=== PATIENT | female | born 1990 | race Caucasian/White ===

== ENCOUNTER 2018-05-13 20:20 | Emergency (ER) | payer OTHER ==
[~2018-05-13] VITALS: Ht 165.1 cm; Wt 68.0 kg
--- NOTE | 2018-05-13 20:33 | ED General ---
General Stated Complaint: MIGRAINE History of Present Illness Date Seen by Provider: May 13, 2018 Time Seen by Provider: 21:00 Initial Comments Patient is a 28-year-old female who has a prior history of migraine headaches. She reports to the emergency department today complaining of exact symptoms that are similar to her normal headache process. This particular headache has occurred over the last 3 days and she has been unable to get rid of it. She was evaluated in an urgent care yesterday and given Toradol and Reglan and she states this medication did not help. At baseline, she uses Imitrex for headaches but her insurance only pays for 9 Imitrex per month so this is all she can obtain. Patient is also followed at [facility] where she receives Botox injections. She reports that her neurologist has canceled all the rest of her headache medications as there was some concern for rebound headaches. Tonight, no focal neuro complaints. No fever. No neck pain or neck stiffness. No rashes. No nausea or vomiting. She does have mild photophobia. Pain is described to be bitemporal and dull and achy. Classic for her symptoms, according to the patient. Allergies and Home Medications Allergies Coded Allergies: No Known Drug Allergies (Unverified , 05/13/18) Home Medications Sumatriptan Succinate 100 Mg Tablet, 100 MG PO UD PRN for MIGRAINE Prescribed by: ALYX BAUGH on 05/13/18 6647 Patient Home Medication List Home Medication List Reviewed: Yes Review of Systems Review of Systems Constitutional: no symptoms reported EENTM: see HPI, ear discharge, hearing loss, ear pain, eye pain, tearing, vision loss, dental problems, hoarseness, mouth pain, epistaxis, nose congestion , nose pain, throat pain, throat swelling, other; No no symptoms reported, No blurred vision, No double vision, No mouth swelling Respiratory: no symptoms reported Cardiovascular: no symptoms reported Genitourinary: no symptoms reported Musculoskeletal: no symptoms reported Skin: no symptoms reported Psychiatric/Neurological: Headache Hematologic/Lymphatic: No Symptoms Reported Immunological/Allergic: no symptoms reported Physical Exam Vital Signs Vital Signs - First Documented 05/13/18 20:56 Temp 98.2 Pulse 88 Resp 14 B/P (MAP) 125/77 (93) Pulse Ox 97 O2 Delivery Room Air Capillary Refill : Height, Weight, BMI Height: '" Weight: lbs. oz. kg; BMI Method: General Appearance: No Apparent Distress, WD/WN HEENT: PERRL/EOMI Neck: Full Range of Motion Respiratory: Lungs Clear Cardiovascular: Regular Rate, Rhythm Extremity: Normal Capillary Refill, Normal Inspection Neurologic/Psychiatric: Alert, Oriented x3, No Motor/Sensory Deficits, Normal Mood/Affect Skin: Normal Color, Warm/Dry Lymphatic: No Adenopathy Progress/Results/Core Measures Suspected Sepsis SIRS Temperature: Pulse: Respiratory Rate: Blood Pressure / Mean: Results/Orders My Orders Orders - ALYX BAUGH DO Ns Iv 1000 Ml (Sodium Chloride 0.9%) (05/13/18 21:00) Diphenhydramine Injection (Benadryl Inje (05/13/18 21:00) Prochlorperazine Injection (Compazine In (05/13/18 21:00) Ketorolac Injection (Toradol Injection) (05/13/18 21:00) Medications Given in ED Current Medications Medications Dose Ordered Sig/Daksha Route Start Time Stop Time Status Last Admin Dose Admin Diphenhydramine HCl 25 mg ONCE ONCE IVP 05/13/18 21:00 05/13/18 21:01 DC 05/13/18 21:30 25 MG Ketorolac Tromethamine 30 mg ONCE ONCE IVP 05/13/18 21:00 05/13/18 21:01 DC 05/13/18 21:29 30 MG Prochlorperazine Edisylate 10 mg ONCE ONCE IV 05/13/18 21:00 05/13/18 21:01 DC 05/13/18 21:29 10 MG Vital Signs/I&O 05/13/18 05/13/18 20:56 21:29 Temp 98.2 98.2 Pulse 88 Resp 14 B/P (MAP) 125/77 (93) Pulse Ox 97 O2 Delivery Room Air Capillary Refill : Critical Care Note Critical Care Total Time (minutes) Patient is seen and examined on arrival to her room. She has no focal neurologic complaints or deficits on physical exam. Her headache is exactly typical for her normal migraine symptoms. In the ER, she is ordered to have IV fluids, Toradol, Compazine, and Benadryl. Will reassess after these medications. 22:00: Patient is currently feeling much improved after the medications. She is requesting discharge home. Patient is provided a prescription for Imitrex. She is advised she can purchase these even without her insurance company being involved. I checked the quesada of these medications for the patient and they should be about $15 at [facility]. She is accompanied by a friend this evening was driving her home. She is advised to keep all follow-up appointments with her primary physicians and neurologists. Return to the emergency department as needed. Departure Impression Primary Impression: Headache Disposition: HOME, SELF-CARE Condition: Improved Departure-Patient Inst. Patient Instructions: Migraine Headache (DC) Scripts Sumatriptan Succinate (Imitrex) 100 Mg Tablet 100 MG PO UD PRN for MIGRAINE for 15 Days, #9 TAB 1 Refill Prov: ALYX BAUGH DO 05/13/18 Work/School Note: Family Work Note Patient Received Medical Care In the Emergency Department On: May 13, 2018 Patient Will Be Able to Return to Work/School On: May 13, 2018 Patient Restrictions: No work on 05/14/2018 ALYX BAUGH DO May 13, 2018 20:33
[2018-05-13] MEDS ORDERED: CYCLOBENZAPRINE 10 MG TABLET (20:54)
[2018-05-13] MEDS ORDERED: SUMATRIPTAN 100 MG (20:54)
[2018-05-13] MEDS ORDERED: ESCITALOPRAM 20 MG (20:54)
[2018-05-13] MEDS ORDERED: ESTARYLLA (20:54)
[2018-05-13] MEDS ORDERED: IBUPROFEN 800 MG (20:54)
[2018-05-13] MEDS ORDERED: BUPROPION 75 MG (20:54)
[2018-05-13] MEDS ORDERED: CLONAZEPAM 1MG TABLETS (20:54)
[2018-05-13] MEDS ORDERED: TOPIRAMATE 25 MG TABLET (20:54)
[2018-05-13] MEDS ORDERED: NS IV 1000 ML 1,000 ML IV SCH (21:00)
[2018-05-13] MEDS ORDERED: diphenhydrAMINE 50 MG/ML INJ (BENADRYL) IVP ONE (21:00)
[2018-05-13] MEDS ORDERED: KETOROLAC 30 MG/ML VIAL IVP ONE (21:00)
[2018-05-13] MEDS ORDERED: PROCHLORPERAZINE 10 MG/2ML INJ (COMPAZINE) IV ONE (21:00)
[2018-05-13] MEDS ORDERED: TRAM-42 PO (21:40)
[2018-05-13] MEDS ORDERED: SUMA100T2 PO (21:42)
[2018-05-13 22:07] VITALS: BP 119/75
--- OUTSIDE RECORDS SUMMARY | 2018-05-14 14:03 | XMS REPORT | Continuity of Care Document ---
Author Author [facility] Address Unknown Phone Unavailable Allergies There is no data. Medications There is no data. Problems Date Dx Coded Attending Type Code Diagnosis Diagnosed By 09/04/2013 IDALIA MORGAN DO V70.5 EXAM - PRE-EMPLOYMENT Procedures Code [place] [address] TB TEST INTRADERMAL 09/04/2013 Results There is no data. Encounters ACCT No. Visit Date/Time Discharge Status Pt. Type Provider Facility Loc./Unit Complaint [id number] 09/04/2013 14:43:00 09/04/2013 23:59:59 [place] [id number] 05/12/2018 11:30:00 [facility]
== END 2018-05-13 22:07 | disposition home or self-care (01) ==
LOC: ER FS 20:33
DX: R51 Headache (principal); Z86.69 Personal history of other diseases of the nervous system and sense organs
CPT/HCPCS: 99283

== ENCOUNTER → 2018-12-11 | Outpatient (CLI) | payer BC ==
[~2018-12-11] MED LIST: BUPROPION 75 MG; CLONAZEPAM 1MG TABLETS; CYCLOBENZAPRINE 10 MG TABLET; ESCITALOPRAM 20 MG; ESTARYLLA; IBUPROFEN 800 MG; SUMA100T2 PO; SUMATRIPTAN 100 MG; TOPIRAMATE 25 MG TABLET; TRAM-42 PO
--- NOTE | 2018-12-11 17:51 | Diagnostic Imaging Report ---
PROCEDURE: MR imaging cervical spine without contrast. TECHNIQUE: Multiplanar, multisequence MR imaging of the cervical spine was performed without contrast. INDICATION: Chronic neck pain and migraines. Bilateral shoulder pain. COMPARISON: None. FINDINGS: Normal alignment. Vertebral body heights preserved. Normal bone marrow signal. The intervertebral discs are well-preserved. No spinal canal or neural foraminal narrowing. No abnormal signal in the cervical spinal cord. The visualized paravertebral soft tissues are unremarkable. IMPRESSION: Normal MRI of the cervical spine. No neural impingement. No acute osseous or ligamentous findings. No abnormal signal in the cervical spinal cord. Dictated by: Dictated on workstation # [id number]
== END ==
LOC: RAD 16:52
PROVIDERS: ATTEND Internal Medicine
DX: G89.29 Other chronic pain (principal); M54.2 Cervicalgia; M25.511 Pain in right shoulder; M25.512 Pain in left shoulder; G43.709 Chronic migraine without aura, not intractable, without status migrainosus
CPT/HCPCS: 72141

== ENCOUNTER 2019-09-07 08:44 | Emergency (ER) | payer OTHER, MEDICAID ==
[~2019-09-07] VITALS: Ht 165.1 cm; Wt 80.0 kg
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
--- OUTSIDE RECORDS SUMMARY | 2019-09-07 08:57 | XMS REPORT | Continuity of Care Document ---
Author Organization Unknown Address Unknown Phone Unavailable Allergies Active Description Code Type Severity Reaction Onset Reported/Identified Relationship to Patient Clinical Status Yes No Known Drug Allergies [id number] Drug Allergy Unknown N/A 05/13/2018 Medications There is no data. Problems Date Dx Coded Attending Type Code Diagnosis Diagnosed By 09/04/2013 IDALIA MORGAN DO V70.5 EXAM - PRE-EMPLOYMENT 05/13/2018 ALYX BAUGH DO Ot G43.909 MIGRAINE, UNSP, NOT INTRACTABLE, WITHOUT 05/13/2018 ALYX BAUGH DO Ot R51 HEADACHE 05/13/2018 ALYX BAUGH DO Ot Z86.69 PERSONAL HISTORY OF DIS OF THE NERVOUS S 05/15/2018 ALYX BAUGH DO Ot G43.909 MIGRAINE, UNSP, NOT INTRACTABLE, WITHOUT 05/15/2018 ALYX BAUGH DO Ot R51 HEADACHE 05/15/2018 ALYX BAUGH DO Ot Z86.69 PERSONAL HISTORY OF DIS OF THE NERVOUS S 12/13/2018 PUCKETTRodrigo ESQUEDA DESTEFANIA Y Ot G43.7 09 CHRONIC MIGRAINE W/O AURA, NOT INTRACTAB 12/13/2018 ITALO ESQUEDA DESTEFANIA Y Ot G89.2 9 OTHER CHRONIC PAIN 12/13/2018 PUCKETTANNABELLE Wallace MD Y Ot M25.5 11 PAIN IN RIGHT SHOULDER 12/13/2018 ITALO ESQUEDA DEETRA Y Ot M25.5 12 PAIN IN LEFT SHOULDER 12/13/2018 PUCKETTANNABELLE Wallace MD Y Ot M54.2 CERVICALGIA 01/03/2019 PUCKETTANNABELLE Wallace MD Y Ot G43.7 09 CHRONIC MIGRAINE W/O AURA, NOT INTRACTAB 01/03/2019 ITALO ESQUEDA DEETRA Y Ot G89.2 9 OTHER CHRONIC PAIN 01/03/2019 PUCKETTANNABELLE Wallace MD Y Ot M25.5 11 PAIN IN RIGHT SHOULDER 01/03/2019 ANNABELLE PUCKETT MD Y Ot M25.5 12 PAIN IN LEFT SHOULDER 01/03/2019 ANNABELLE PUCKETT MD Y Ot M54.2 CERVICALGIA Procedures Code Description [place] [address] TB T EST INTRADERMAL 09/04/2013 Results There is no data. Encounters ACCT No. Visit Date/Time Discharge Status Pt. Type Provider Facility Loc./Unit Complaint [id number] 08/30/2019 13:30:00 08/30/2019 23:59:5 9 CLS Outpatient [facility] [id number] 12/11/2018 16:52:00 23:59:59 CLS Outpatient ANNABELLE PUCKETT MD Y [facility] RAD CHRONIC MIGRAINE,NECK P AIN [id number] 09/01/2018 15:30:00 23:59:59 CLS Preadmit ANNABELLE PUCKETT MD Y [facility] RAD NECK PAIN [id number] 05/13/2018 20:33:00 22:07:00 DIS Emergency ALYX BAUGH DO [facility] ER FS MIGRAINE [id number] 09/04/2013 14:43:00 09/04/2013 23:59: 59 CLS Outpatient IDALIA MORGAN DO
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
[2019-09-07 09:36] VITALS: BP 107/88
== END 2019-09-07 09:36 | disposition home or self-care (01) ==
LOC: EDUNIT# 08:44 → ER FS 08:45
DX: S16.1XXA Strain of muscle, fascia and tendon at neck level, initial encounter (principal); S50.812A Abrasion of left forearm, initial encounter; G43.909 Migraine, unspecified, not intractable, without status migrainosus; V49.40XA Driver injured in collision with unspecified motor vehicles in traffic accident, initial encounter
CPT/HCPCS: 72125

== ENCOUNTER 2021-04-06 22:23 | Emergency (ER) | payer MEDICAID, OTHER ==
[~2021-04-06] VITALS: Ht 165 cm; Wt 81.7 kg
--- OUTSIDE RECORDS SUMMARY | 2021-04-06 22:28 | XMS REPORT | Encounter Summary ---
Author Author [facility] Organization [facility] Address Unknown Phone Unavailable Care Team Providers Care Tsa Screener Name Role Phone Rashaun Valdez MD PCP Reason for Visit * Reason Comments Suicidal physicians have been adjust ing her medications; reports suicidal thoughts x couple of weeks * Auth/Cert Diagnoses / Procedures Referred By Contact Referred To Conta ct Specialty Diagnoses Suicidal ideation Referral ID Status Reason Start Date Expiration Visits Vi sits Date Requested Authorized [id number] 1 1 Encounter Details Care Team Description Date Type Department Dangers, David Alexander MD [address] [facility] [place] [address] Selena Muniz, DO [address] [place] [address] Sandhya Joseph, DO [address] [facility] [address] [place] [address] 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 02/12/2021 [facility]: - Encounter Carroll Stevenson 02/17/[address] [place] [address] Social History Date Tobacco Use Types Packs/Day Years Used Never Smoker Smokeless Tobacco: Never Used Comments Alcohol Use Standard Drinks/Week Not Currently 0 (1 standard drink = 0.6 o z pure alcohol) Sex Assigned at Date Recorded Female 03/10/2020 4:08 PM MANAGER SHELL Date Recorded COVID-19 Exposure Response 02/12/2021 9:52 PM MANAGER SHELL In the last month, have you been in contact with No / Unsure someone who was confirmed or suspected to have Coronavirus / COVID-19? documented as of this encounter Last Filed Vital Signs Reading Time Taken Comments Vital Sign 109/76 02/17/2021 11:00 AM MANAGER SHELL Blood Pressure 90 02/17/2021 11:00 AM MANAGER SHELL Pulse 36.6 C (97.8 F) 02/17/2021 11:00 AM MANAGER SHELL Temperature - - Respiratory Rate 98% 02/17/2021 11:00 AM MANAGER SHELL Oxygen Saturation - - Inhaled Oxygen Concentration 81.8 kg (180 lb 6.4 oz) 02/13/2021 2:23 AM MANAGER SHELL Weight 162.6 cm (5' 4") 02/13/2021 2:23 AM MANAGER SHELL Height 30.97 02/13/2021 2:23 AM MANAGER SHELL Body Mass Index documented in this encounter Functional Status Date of Assessment Functional Status Response 02/13/2021 Does the patient have a hearing impairment: No documented as of this encounter Discharge Summaries * Selena Muniz, DO - 02/16/2021 9:31 AM MANAGER SHELL Discharge Summary Name: Selena Mortensen Date Of : 1990 Age: 30 years Admit date: 02/12/2021 Discharge date: 02/17/2021 Discharge Attending: Dr. Selena Muniz Discharge Summary Completed By: Ryne Keane MD Service: [facility] Adult [facility] 1 Reason for hospitalization: Suicidal ideation [R45.851] Primary Discharge Diagnosis: Depressive disorder due to another medical condition with depressive features Hospital Diagnoses: Hospital Problems Active Problems * (Principal) Depressive disorder due to another medical condition with depressive features Borderline personality disorder Generalized anxiety disorder Significant Past Medical History Anxiety Depression Headache Impingement syndrome of shoulder Kidney stone Migraines Neck pain Allergies Patient has no known allergies. Brief Hospital Course The patient was admitted and treated for suicidal ideation, worsening in the con text of chronic migraines and interpersonal stressors with work. During her admi ssion, she was continued on Wellbutrin 450 mg qday per patient request, and rest arted on Lamotrigine 25 mg qhs with plans to uptitrate to 200 mg qday on an outp atient basis. She was also placed on an AWAS protocol with gabapentin taper due to her chronic use of clonopin. She was encouraged to discontinue her clonopin a s chronic benzodiazepine use can lead to dangerous withdrawals. Her Sumatriptan was restarted PRN for migraines, as there is no known interaction between sumatr iptan and wellbutrin that could cause serotonin syndrome and patient did not hav e objective fevers during her admission. She was provided with Hydroxyzine 25 mg 30 tablets on discharge, as needed for anxiety. During this admission, the patient had no behavioral disturbances and participat ed fully in treatment. Collateral information was gathered as needed for treatme nt. Medications were adjusted and the patient tolerated the below regimen well. Throughout this admission, the patient participated in group therapy sessions an d expressed significant improvement from admission. The patient reported distres s over getting a new job but throughout the admission discussed these stressors and felt more prepared to cope with these upon discharge. The day of discharge, the patient reported that her mood was improved, and displ ayed a forward thinking thought process with plans go home, be around her friend Nick and her daughter Dedra, and find a new job . At discharge, the patient denied SI/HI/AVH. Mental Status Exam at Discharge Mental Status Exam General/Constitutional: appears stated age, dressed in hospital attire and fair grooming Eye Contact: good Behavior: calm, cooperative and appropriate for conversation Attention: appropriate for conversation Speech: RRR, normal volume, normal tone and good articulation Mood: "okay" Affect: bright,full range; mood congruent Thought process:linear and goal directed Thought content: denies Suicidal Ideation, Homicidal Ideation. No evidence of de lusions Perception: denies Auditory Visual Hallucinations Associations: Intact Insight: good Orientation: AAOx3 (name/year/location) Recent and remote memory: grossly intact Attention span and concentration: appropriate for conversation Cognition: average Language: faroese, fluent Fund of knowledge and vocabulary: average Physical Exam: Neuro: No tics, tremors, akathisia noted.- Musculoskeletal: Moves all four extremities spontaneously Gait: normal, no ataxia Items Needing Follow Up Pending items or areas that need to be addressed at follow up: Follow up with in ternal medicine regarding subjective fevers. Pending Labs and Follow Up Radiology Pending labs and/or radiology review at this time of discharge are listed below: if this area is blank, there are no items for review. Medications Is the patient being discharged on two or more antipsychotic medications? No Metabolic Monitoring: Body mass index is 30.97 kg/m. Wt Readings from Last 3 Encounters: 02/13/21 81.8 kg (180 lb 6.4 oz) 02/11/21 83.7 kg (184 lb 8 oz) 11/19/20 84.4 kg (186 lb) BP Readings from Last 3 Encounters: 02/16/21 111/71 02/11/21 128/82 11/19/20 124/82 No results found for: CHOL, TRIG, HDL, LDL, VLDL, NONHDLCHOL, CHOLHDLC No results found for: HGBA1C Patient instructions/medications: Medication List START taking these medications hydrOXYzine HCL 25 mg tablet; Commonly known as: ATARAX; Dose: 25 mg; Take one tablet by mouth every 6 hours as needed. Indications: anxious; For: anxious; Quantity: 30 tablet; Refills: 0 lamoTRIgine 25 mg tablet; Commonly known as: LaMICtal; Dose: 25 mg; Take one tablet by mouth at bedtime daily.; Quantity: 30 tablet; Refills: 0 CONTINUE taking these medications eszopiclone 3 mg tablet; Commonly known as: LUNESTA; Dose: 3 mg; Refills: 0 ibuprofen 800 mg tablet; Commonly known as: MOTRIN; Dose: 800 mg; Refills: 0 MELATONIN PO; Refills: 0 norgestimate-ethinyl estradiol 0.25 mg-35 mcg tablet; Commonly known as: ORTHO-CYCLEN (28); Dose: 1 tablet; Refills: 0 ondansetron 4 mg rapid dissolve tablet; Commonly known as: ZOFRAN ODT; PLACE ONE (1) TABLET ON TONGUE AND ALLOW TO DISSOLVE EVERY 8 HOURS NEEDED FOR NAUSEA OR VOMITING; Quantity: 15 tablet; Refills: 0 UBRELVY 100 mg tablet; Generic drug: ubrogepant; Dose: 100 mg; Take one tablet by mouth daily as needed. May repeat once after 2 hours based on response. Indications: a migraine headache; For: a migraine headache; Quantity: 10 tablet; Refills: 3 * WELLBUTRIN XL 300 mg tablet; Generic drug: buPROPion XL; Dose: 300 mg; Refills: 0 * buPROPion XL 150 mg tablet; Commonly known as: WELLBUTRIN XL; Dose: 150 mg; Refills: 0 * This list has 2 medication(s) that are the same as other medications prescribed for you. Read the directions carefully, and ask your doctor or other care provider to review them with you. STOP taking these medications clonazePAM 1 mg tablet; Commonly known as: KlonoPIN Return Appointments and Scheduled Appointments Scheduled appointments: May 06, 2021 2:30 PM (Arrive by 2:15 PM) Procedure with Torito Owens MD Neurology: [facility] (Neurology) [address] [facility] [address] Sep 08, 2021 3:00 PM (Arrive by 2:45 PM) Office visit with Torito Owens MD Neurology: [facility] (Neurology) [address] [facility] [address] Consults, Procedures, Diagnostics, Micro, Pathology Consults: None Surgical Procedures & Dates: None Significant Diagnostic Studies, Micro and Procedures: none Significant Pathology: none Nutrition: No Dietitian Consult Discharge Disposition, Condition Patient Disposition: Home Condition at Discharge: Stable Code Status Code Status History This patient has a current code status but no historical code status. Patient Instructions Regular Diet You have no dietary restriction. Please continue with a healthy balanced diet. Report These Signs and Symptoms Please contact your doctor if you have any of the following symptoms: suicidal thoughts, auditory or visual hallucinations, desire to harm self or others Questions About Your Stay For questions or concerns regarding your hospital stay, call [phone]. Discharging attending physician: SELENA MUNIZ [[id number]] Activity as Tolerated It is important to keep increasing your activity level after you leave the hosp ital. Moving around can help prevent blood clots, lung infection (pneumonia) an d other problems. Gradually increasing the number of times you are up moving ar ound will help you return to your normal activity level more quickly. Continue to increase the number of times you are up to the chair and walking daily to ret urn to your normal activity level. Begin to work toward your normal activity lev el at discharge Additional Orders: Case Management, Supplies, Home Health Home Health/DME None Signed: Ryne Keane MD 02/16/2021 cc: Primary Care Physician: Rashaun Valdez Verified Referring physicians: Self, Referral Additional provider(s): Did we miss something? If additional records are needed, please fax a request on office letterhead to [phone]. Please include the patient's name, date of b irth, fax number and type of information needed. Additional request can be made by email at [email or web address]. For general questions of information about electronic records sharing, call [phone]. GER SHELL documented in this encounter Discharge Instructions * Discharge Instructions* Destini Dotson - 02/16/2021 9:46 AM MANAGER SHELL Case Management Discharge Instructions: Selena, We recommend that you continue to follow up with outpatient mental health ser vices, including individual therapy and medication management/psychiatry Continue to take your medication as prescribed, and report any negative side effects to your doctor In case of emergency or crisis, IMMEDIATELY call 911 or go to your nearest em ergency room Appointment Information: [facility] [address] [place] [address] [phone] We encourage you to follow up with Dr. Nice within 30 days to [place] [address] [phone] Other Follow Up Information: National Suicide Prevention Lifeline: DIRECT LINE: 138 We can all help prevent suicide. The Lifeline provides 24/7, free and confidenti al support for people in distress, prevention and crisis resources for you or yo ur loved ones, and best practices for professionals. Crisis Text Line: Text HELLO or HOME to 389977 Crisis Text Line serves anyone, in any type of crisis, providing access to free, 24/7 support and information via a medium people already use and trust: text. - This free service provides access to thousands of resources. Call 04-14- and you' ll reach a trained, caring professional seven days a week, 24 hours a day, 365 d ays a year. GER SHELL * Discharge Instr - Case Management* Destini Dotson - 02/16/2021 12:05 PM MANAGER SHELL Case Management Discharge Instructions: Selena, We recommend that you continue to follow up with outpatient mental health servic es, including individual therapy and medication management/psychiatry Continue to take your medication as prescribed, and report any negative side eff ects to your doctor In case of emergency or crisis, IMMEDIATELY call 911 or go to your nearest emerg ency room Appointment Information: [facility] [address] [place] [address] [phone] We encourage you to follow up with Dr. Nice within 30 days to ensure continued medication compliance. [facility] [address] [place] [address] [phone] Other Follow Up Information: National Suicide Prevention Lifeline: DIRECT LINE: 054 We can all help prevent suicide. The Lifeline provides 24/7, free and confidenti al support for people in distress, prevention and crisis resources for you or yo ur loved ones, and best practices for professionals. Crisis Text Line: Text HELLO or HOME to 420414 Crisis Text Line serves anyone, in any type of crisis, providing access to free, 24/7 support and information via a medium people already use and trust: text. [place] [address] This free service provides access to thousands of resources. Call 2-1-1 and you' ll reach a trained, caring professional seven days a week, 24 hours a day, 365 d ays a year. GER SHELL documented in this encounter Medications at Time of Discharge Start Date End Date Medication Sig Dispensed Refills buPROPion XL (WELLBUTRIN Take 150 mg 0 XL) 150 mg tablet by mouth daily. Do not crush or chew. buPROPion XL (WELLBUTRIN Take 300 mg 0 XL) 300 mg tablet by mouth every morning. Do not crush or chew. eszopiclone (LUNESTA) 3 Take 3 mg by 0 mg tablet mouth at bedtime as needed for Sleep. 02/16/2021 hydrOXYzine HCL (ATARAX) Take one 30 tablet 0 25 mg tabletIndications: tablet by anxiety mouth every 6 hours as needed. Indications: anxious ibuprofen (MOTRIN) 800 mg Take 800 mg 0 tablet by mouth every 12 hours as needed for Pain. Take with food. 02/16/2021 lamoTRIgine (LAMICTAL) 25 Take one 30 tablet 0 mg tablet tablet by mouth at bedtime daily. MELATONIN PO Take by 0 mouth at bedtime as needed. norgestimate/ethinyl Take 1 tablet 0 estradiol(+) by mouth (ORTHO-CYCLEN (28); daily. SPRINTEC (28); MONONESSA (28); PREVIFEM) tablet 01/21/2021 ubrogepant (UBRELVY) 100 Take one 10 tablet 3 mg tabletIndications: tablet by migraine mouth daily as needed. May repeat once after 2 hours based on response. Indications: a migraine headache 12/31/2020 04/01/2021 ondansetron (ZOFRAN ODT) PLACE ONE (1) 15 tablet 0 4 mg rapid dissolve TABLET ON tablet TONGUE AND ALLOW TO DISSOLVE EVERY 8 HOURS NEEDED FOR NAUSEA OR VOMITING documented as of this encounter Ordered Prescriptions Start Date End Date Prescription Sig Dispensed Refills 02/16/2021 hydrOXYzine HCL (ATARAX) Take one 30 tablet 0 25 mg tabletIndications: tablet by anxiety mouth every 6 hours as needed. Indications: anxious 02/16/2021 lamoTRIgine (LAMICTAL) 25 Take one 30 tablet 0 mg tablet tablet by mouth at bedtime daily. documented in this encounter Discharge Disposition Code Departure Means Destination Disposition Car Home or Self Care documented in this encounter Progress Notes * Rudolph Robledo RN - 02/17/2021 12:15 PM MANAGER SHELL Name: Selena Mortensen : 1990 Age : 30 y.o. Admission Date: 02/12/2021 LOS: 4 days Discharge Note: Condition Selena's mood and though contents have improved and are appropriate for discharg e. Pt denies SIHISH. Pt denies AHVH Disposition Patient is leaving with friend by car to home. All items from room, belonging bi n, medication room, and safe are returned to the patients. Discharge Instructions Discharge instructions and psychiatry summary of care were discussed and provide d. A copy will be transmitted to the next level of care provider within 24 hours after discharge. Selena expresses understanding. Pt denies any questions or co ncerns at this time GER SHELL * Rudolph Robledo RN - 02/17/2021 11:32 AM MANAGER SHELL PRN Medication Administered: Atarax 25 mg PO Non pharmacological interventions attempted prior to PRN medication administrati on: Verbal de-escalation techniques, Decrease stimuli and Increase structure and julio it setting Brief narrative of reason for PRN medication administration: Selena c/o anxiety of 5 r/t going home and requested prn medication for anxiety. GER SHELL * Rudolph Robledo RN - 02/17/2021 7:56 AM MANAGER SHELL Chart check completed. GER SHELL * Elvira Daniel RN - 02/16/2021 9:58 PM MANAGER SHELL PRN Medication Administered: Atarax Non pharmacological interventions attempted prior to PRN medication administrati on: Verbal de-escalation techniques Brief narrative of reason for PRN medication administration: Pt requested PRN me d for anxiety rated 5/10. Med given per order. GER SHELL * Destini Dotson - 02/16/2021 12:07 PM MANAGER SHELL Case Management Progress Note NAME:Selena Mortensen :1990 AGE: 30 y.o. ADMISSION DATE: 02/12/2021 DAYS ADMITTED: LOS: 3 days Date of Service: 02/16/21 Service Start Time: 1150 This CM met with patient on unit to complete discharge planning. When asked abou t transportation, patient stated that she would be able to call someone for pickling drum operator tomorrow. This CM explained to her that discharge was planned for today, and that they would call Medicaid Transport to ensure she gets home to [place], [place]. Safety plan completed, with patient demonstrating some insight into her triggers and warning signs, but still gave minimal responses. This CM to call Medicaid Transport to scheduled pickling drum operator. GER SHELL * Destini Dotson - 02/16/2021 9:47 AM MANAGER SHELL SAFETY PLAN Name: Selena Mortensen : 1990 Age: 30 y.o. Admission Date: 02/12/2021 Days Admitted: LOS: 3 days Step 1: WHAT I LOOK FORWARD TO IN MY FUTURE are: Getting a new job. Happy mom, h appy daughter. Taking what I've learned here and use it. Step 2: What are my protective factors? My daughter Step 3: What are TRIGGERS that I can avoid that may result in thoughts of harm t o myself or others? (situations, people, behaviors, places, substance) 1. Telling the person I care for that I will not be returning 2. 3. Step 4: What are my internal WARNING SIGNS of distress? (thoughts, images, moods , memories) 1. My stomach drops 2. Cold sweat 3. Step 5: INTERNAL COPING STRATEGIES What can I do on my own to help prevent m yself from acting out on my thoughts to harm myself or others? 1. Body stretching techniques 2. 3. Step 6: How can I attempt to have safer surroundings in my environment to preven t a crisis? 1. Take my medications as prescribed 2. Reach out to friends and supports as needed 3. Step 7: Among my supports, whom can I reach out to for help during a crisis? Friend/Family I can call: Phone: Workers Compensation Adjuster/Therapist: Phone: Psychiatrist/Physician: Phone: Psychologist/Counselor: Phone: [employer]: 989 or 6-150-UBMPXKM ( or 1. [phone] for deaf & hard of hearing available 24 hours/7days/week) Or text [phone] If a crisis develops, and/or I want to harm myself or others, and using the abov e safety plan is NOT EFFECTIVE, I agree to immediately do the followin. Either remove myself from the presence of weapons, medications, or other mean s of harming myself, or ask a trusted friend/family member to remove such things from my home. 2. Call 911 or go the nearest hospital emergency room. Additional Contacts: o The Veterans Suicide Hotline (Veterans Crisis Line): , press 1 o r text to 411026 (available 24 hours a day, seven days a week) o Veterans Crisis Line website & online chat: https://www.veteranscrisisline.net/get-help/chat o Kevin Pantryline, suicide hotline for Lesbian, Deleon, Bisexual, Transgender and Q uestioning (LGBTQ): 645.130.3629 (available 24 hours a day, seven days a week) o Reyna online chat: https://www.theBranch Metricsvorproject.org/uyb-mplj-owx (Availab le 7 days a week (3:00 p.m. - 9:00 p.m. ET / 12:00 p.m. - 6:00 p.m. PT) o Text the word "Kevin" to (Available on Fridays (4:00 p.m. - 8: 00 p.m. ET / 1:00 p.m. - 5:00 p.m. PT) o Trans Lifeline, the first transgender suicide hotline: 578.848.7222 o [facility] National Helpline: 1-925-061-HELP (4355) o The Disaster Distress Helpline: [place] [address] o Sexual assault hotline: available 04/10 o Domestic Violence hotline: 0-344-423-SAFE (7233) available 04/10 GER SHELL * Ryne Keane MD - 02/16/2021 8:55 AM MANAGER SHELL PSYCHIATRIC PROGRESS NOTE LOS: 3 days Voluntary/Involuntary Status: Voluntary Guardian? None MEDICATIONS Current Psychotropic Medications: 1. Wellbutrin 450 mg po qd 2. Lamotrigine 25 mg po qhs 3. Gabapentin taper ASSESSMENT & DIAGNOSES Selena Mortensen is a 30 y.o. female with a history of chronic migra parth, DOLORES, reported bipolar disorder who presented to with suicidal thoughts. This appears to be precipitated by worsening migraines and work stress. 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 This current pr oblem is maintained by poor coping skills and insomnia. However, protective fact ors include supportive family and friends, willingness to try medications, being primary caregiver for her daughter. Proposed treatment has consisted of pharmac ological management and individualized & group therapy. DSM-5 DIAGNOSES: 1. Adjustment disorder, depressed mood 2. Borderline personality disorder 3. Generalized anxiety disorder 4. Bipolar disorder 5. Major depressive disorder PLAN No indication for psychotropic medication changes on 02/16/21. Can discontinue gabapentin as pt without sx of withdrawal Restart sumatriptan for chronic migraines, as no interaction found between s umatriptan and wellbutrin Metabolic labs completed on: Lipid Panel: No results found for: LDL No results found for: HDL No results found for: VLDL No results found for: CHOL No results found for: TRIG Blood Glucose: No results found for: HGBA1C Disposition: Discharge today. Will go to home upon discharge. Seen and discussed with Dr. Muniz. SUBJECTIVE Today, Selena reports feeling well. Her weekend went well, and she enjoyed watch ing [employer] football last night. She is tolerating her medications. She denies suici elio ideation, homicidal ideation, and AVH. She reports feeling constipated and r eceived Miralax this morning. She also reports anxiety related to stress about h er job. She is sleeping well. Per nurse's report, she is interacting with peers. Appetite is good today. Denied any headache at this time, last took sumatriptan yesterday. Feels that she would be able to maintain her safety today with her f dorita Romero at home along with her daughter. REVIEW OF SYSTEMS Constitutional: denies wt loss, appetite change, sleep change, fatigue Eyes: denies changes in vision Cardiology: denies chest pain Pulmonary: denies shortness of breath Gastrointestinal: denies abdominal pain, nausea/vomiting, constipation/diarrhea Genitourinary: denies changes in urination Neurology: denies headaches Psychiatry: denies suicidal ideation, homicidal ideation, auditory/visual halluc inations Musculoskeletal: denies pain Integumentary: denies wounds OBJECTIVE Vital Signs: Current Vital Signs: 24 Hour Range BP: 111/71 (02/16 723) Temp: 36.8 C (98.2 F) (02/16 723) Pulse: 76 (02/16 723) Respirations: 18 PER MINUTE (02/16 723) SpO2: 99 % (02/16 723) BP: (108-115)/(55-75) Temp: [36.8 C (98.2 F)-37.2 C (99 F)] Pulse: [76-82] Respirations: [18 PER MINUTE] SpO2: [97 %-99 %] Intensity Pain Scale (Self Report): (not recorded) Sleep: Hours of Sleep: 6.25 Quality of Sleep: Resting Quietly Scheduled Medications: buPROPion XL (WELLBUTRIN XL) tablet 450 mg, 450 mg, Oral, QDAY gabapentin (NEURONTIN) capsule 900 mg, 900 mg, Oral, Q8H Followed by gabapentin (NEURONTIN) capsule 600 mg, 600 mg, Oral, Q8H Followed by [START ON 02/18/2021] gabapentin (NEURONTIN) capsule 300 mg, 300 mg, Oral, Q8H lamoTRIgine (LaMICtal) tablet 25 mg, 25 mg, Oral, QHS levonorgestrel-ethinyl estradiol (SHIRIN-28) tablet 1 tablet, 1 tablet, Oral, QD AY melatonin (MELATIN) tablet 10 mg, 10 mg, Oral, QHS PRN Medications: acetaminophen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 PG MCHC 33.7 32.0 - 36.0 G/DL RDW 13.8 11 - 15 % Platelet Count 426 (H) 150 - 400 K/UL MPV 7.5 7 - 11 FL Neutrophils 64 41 - 77 % Lymphocytes 28 24 - 44 % Monocytes 6 4 - 12 % Eosinophils 1 0 - 5 % Basophils 1 0 - 2 % Absolute Neutrophil Count 5.86 1.8 - 7.0 K/UL Absolute Lymph Count 2.53 1.0 - 4.8 K/UL Absolute Monocyte Count 0.53 0 - 0.80 K/UL Absolute Eosinophil Count 0.06 0 - 0.45 K/UL Absolute Basophil Count 0.05 0 - 0.20 K/UL MDW (Monocyte Distribution Width) 14.9 <20.7 ALCOHOL LEVEL Collection Time: 02/12/21 5:11 PM Result Value Ref Range Alcohol <10 MG/DL ACETAMINOPHEN LEVEL Collection Time: 02/12/21 5:11 PM Result Value Ref Range Acetaminophen <10.0 <20.1 MCG/ML SALICYLATE LEVEL Collection Time: 02/12/21 5:11 PM Result Value Ref Range Salicylate <2.5 2.0 - 29.0 MG/DL COMPREHENSIVE METABOLIC PANEL Collection Time: 02/12/21 5:11 PM Result Value Ref Range Sodium 141 137 - 147 MMOL/L Potassium 4.0 3.5 - 5.1 MMOL/L Chloride 105 98 - 110 MMOL/L Glucose 109 (H) 70 - 100 MG/DL Blood Urea Nitrogen 9 7 - 25 MG/DL Creatinine 0.92 0.4 - 1.00 MG/DL Calcium 9.4 8.5 - 10.6 MG/DL Total Protein 8.0 6.0 - 8.0 G/DL Total Bilirubin 0.8 0.3 - 1.2 MG/DL Albumin 4.7 3.5 - 5.0 G/DL Alk Phosphatase 84 25 - 110 U/L AST (SGOT) 25 7 - 40 U/L CO2 24 21 - 30 MMOL/L ALT (SGPT) 27 7 - 56 U/L Anion Gap 12 3 - 12 eGFR Non >60 >60 mL/min eGFR >60 >60 mL/min TSH WITH FREE T4 REFLEX Collection Time: 02/12/21 5:11 PM Result Value Ref Range TSH 1.72 0.35 - 5.00 MCU/ML AMPHETAMINES-URINE RANDOM Collection Time: 02/12/21 6:24 PM Result Value Ref Range Amphetamines NEG NEG-NEG BARBITURATES-URINE RANDOM Collection Time: 02/12/21 6:24 PM Result Value Ref Range Barbiturates,Urine NEG NEG-NEG BENZODIAZEPINES-URINE RANDOM Collection Time: 02/12/21 6:24 PM Result Value Ref Range Benzodiazepines POS (A) NEG-NEG CANNABINOIDS-URINE RANDOM Collection Time: 02/12/21 6:24 PM Result Value Ref Range THC NEG NEG-NEG COCAINE-URINE RANDOM Collection Time: 02/12/21 6:24 PM Result Value Ref Range Cocaine-Urine NEG NEG-NEG PHENCYCLIDINES-URINE RANDOM Collection Time: 02/12/21 6:24 PM Result Value Ref Range Phencyclidine (PCP) NEG NEG-NEG METHADONE-URINE SCREEN Collection Time: 02/12/21 6:24 PM Result Value Ref Range Methadone NEG NEG-NEG OXYCODONE URINE SCREEN Collection Time: 02/12/21 6:24 PM Result Value Ref Range Oxycodone, Urine NEG NEG-NEG OPIATES 300 OR GREATER-URINE RANDOM Collection Time: 02/12/21 6:24 PM Result Value Ref Range Opiates 300 NEG NEG-NEG URINALYSIS DIPSTICK REFLEX TO CULTURE Collection Time: 02/12/21 6:24 PM Specimen: Urine Result Value Ref Range Color,UA YELLOW Turbidity,UA 1+ (A) CLEAR-CLEAR Specific [place]-Urine 1.017 1.005 - 1.030 pH,UA 5.0 5.0 - 8.0 Protein,UA NEG NEG-NEG Glucose,UA NEG NEG-NEG Ketones,UA NEG NEG-NEG Bilirubin,UA NEG NEG-NEG Blood,UA NEG NEG-NEG Urobilinogen,UA NORMAL NORM-NORMAL Nitrite,UA NEG NEG-NEG Leukocytes,UA NEG NEG-NEG Urine Ascorbic Acid, UA NEG NEG-NEG URINALYSIS MICROSCOPIC REFLEX TO CULTURE Collection Time: 02/12/21 6:24 PM Specimen: Urine Result Value Ref Range WBCs,UA 2-10 0 - 2 /HPF RBCs,UA 0-2 0 - 3 /HPF Comment,UA Criteria for reflex to culture are WBC>10, Positive Nitrite, and/or >=+1 leukocytes. If quantity is not sufficient, an addendum will follow. MucousUA TRACE Squamous Epithelial Cells 5-10 0 - 5 COVID-19 (SARS-COV-2) PCR Collection Time: 02/12/21 10:16 PM Specimen: Nasopharyngeal; Flocked Swab Result Value Ref Range COVID-19 (SARS-CoV-2) PCR Source FLOCKED SWAB NASOPHARYNGEAL COVID-19 (SARS-CoV-2) PCR NOT DETECTED DN-NOT DETECTED Juan Stubbs, MS3 Ryne Keane MD Internal Medicine/Psychiatry PGY-1 [facility] Associated attestation - Selena Muniz DO - 02/13/2021 1:33 PM MANAGER SHELL ATTESTATION I personally performed the oscar portions of the E/M visit, discussed case with re sident and concur with resident documentation of history, physical exam, assessm ent, and treatment plan unless otherwise noted. Staff name: Selena Muniz DO Date: 02/13/2021 documented in this encounter Consult Notes * Jasmin Appiah APRN-ANALYTICAL CLERK - 02/13/2021 9:25 AM MANAGER SHELL Associated Order(s): CONSULT [facility] GENERAL MEDICINE PHYSICIAN Admission Date: 02/12/2021 LOS: 0 Active Problems: * No active hospital problems. * Reason for Consult: Medical management Consult type: Opinion with orders Impression 30 yo F admitted to [facility] with the following medical issues: Depression Suicidal Thoughts Migraine Headaches- follows w/ Dr. Roman LAURA Neuro. Has received Botox inj, last d ose 02/11. Flexeril and Sumatriptan stopped 02/11. Ongoing headaches currently Recommendations -Pt reports ongoing headache, ordered Sumatriptan x1 and Ibuprofen q12 prn -she currently denies any other medical complaints -will be happy to reassess pt if other medical issues arise The patient is admitted to inpatient psychiatric unit. The inpatient psychiatry team is following. Internal medicine team was consulted for medical evaluation. I reviewed patient medical history, vitals, medications, labs and available medi [facility] records . Thank you for the consult , the patient is currently medically stable we will be happy to see the patient again if needed Internal medicine can be reached out by Looking up [facility] on [employer] or [employer] yazmin for direct yazmin communication or by paging [phone] JUAN Mcginnis Internal Medicine Consults History of Present Illness: Selena Mortensen is a 30 y.o. y.o. female admitted for suicidal thoughts. She reports increased stressors with job, money, family and sick family members. She had plans to use a knife on herself. 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 Psychiatric HPI obtained from records review. Today, she reports ongoing issues with her c hronic migraine headaches. The pain is frontal and throbbing in nature which is how her migraines usually present. She denies any other medical complaints. Medical History: Diagnosis Date Anxiety Depression Headache Impingement syndrome of shoulder Kidney stone Migraines Neck pain Surgical History: Procedure Laterality Date CERVICAL PLEXUS BLOCK 12/12/2012 SECTION 12/06/2014 BUNIONECTOMY Bilateral COLONOSCOPY Social History Socioeconomic History Marital status: Single Spouse name: Not on file Number of children: Not on file Years of education: Not on file Highest education level: Not on file Occupational History Not on file Tobacco Use Smoking status: Never Smoker Smokeless tobacco: Never Used Vaping Use Vaping Use: Never used Substance and Sexual Activity Alcohol use: Not Currently Drug use: Never Sexual activity: Not on file Other Topics Concern Not on file Social History Narrative Not on file Family history reviewed; non-contributory Family History Problem Relation Age of Onset Neurological Problem Mother Myasthenia gravis Cancer Father leukemia and skin Diabetes Father Heart Disease Father Hypertension Father Migraines Sister Allergies: No Known Allergies Scheduled Meds: MEDS IV MEDS Prn acetaminophen Q6H PRN 650 mg at 02/13/21 0840, calcium carbon ate TID PRN, hydrOXYzine Q6H PRN, OLANZapine Q6H PRN OR OLANZapine Q6H PRN, polyethylene glycol 3350 QDAY PRN, traZODone QHS PRN HOME MEDS Medications Prior to Admission Medication Sig buPROPion XL (WELLBUTRIN XL) 300 mg tablet Take 300 mg by mouth every mornin g. Do not crush or chew. clonazePAM (KLONOPIN) 1 mg tablet Take 1 mg by mouth three times daily. eszopiclone (LUNESTA) 3 mg tablet Take 3 mg by mouth at bedtime as needed fo r Sleep. ibuprofen (MOTRIN) 800 mg tablet Take 800 mg by mouth every 12 hours as need ed for Pain. Take with food. MELATONIN PO Take by mouth at bedtime as needed. norgestimate/ethinyl estradiol(+) (ORTHO-CYCLEN (28); SPRINTEC (28); MONONES SA (28); PREVIFEM) tablet Take 1 tablet by mouth daily. ondansetron (ZOFRAN ODT) 4 mg rapid dissolve tablet PLACE ONE (1) TABLET ON TONGUE AND ALLOW TO DISSOLVE EVERY 8 HOURS NEEDED FOR NAUSEA OR VOMITING ubrogepant (UBRELVY) 100 mg tablet Take one tablet by mouth daily as needed. May repeat once after 2 hours based on response. Indications: a migraine heada lani Review of Systems: 14 point ROS performed and negative with exception of headache Vital Signs: Last Filed In 24 Hours Vital Signs: 24 Hour Range BP: 103/70 (02/14 800) Temp: 36.8 C (98.2 F) (02/14 800) Pulse: 66 (02/14 800) Respirations: 18 PER MINUTE (02/14 800) SpO2: 98 % (02/14 800) SpO2 Pulse: 84 (02/12 2107) Height: 162.6 cm (64") (02/13 022) BP: (103-152)/(70-99) Temp: [36.5 C (97.7 F)-37 C (98.6 F)] Pulse: [66-73] Respirations: [16 PER MINUTE-18 PER MINUTE] SpO2: [96 %-100 %] Physical Exam: General: alert and oriented, cooperative and no distress Head: normocephalic, atraumatic, without obvious abnormality Eyes:?conjunctivae/corneas clear. PERRL Throat: Lips, mucosa, and tongue normal. Teeth and gums normal Neck: supple, symmetrical, trachea midline, no adenopathy Back: symmetric, no curvature. ROM normal. Lungs: clear to auscultation bilaterally, no wheezes, rales, rhonchi Heart: regular rate and rhythm, S1, S2 normal, no murmur, click, rub or gallop Abdomen:?bowel sounds present, nontender, no organomegaly Extremities: pulses palpable, no pedal edema or skin lesions Neurologic: grossly normal, alert and oriented X 3, normal strength and tone. Skin:?skin color, texture, turgor normal. No rashes or lesions Lab/Radiology/Other Diagnostic Tests: Recent Labs 02/12/21 1711 NA 141 K 4.0 CL 105 CO2 24 GAP 12 BUN 9 CR 0.92 GLU 109* CA 9.4 ALBUMIN 4.7 TSH 1.72 Recent Labs 02/12/21 1711 WBC 9.0 HGB 12.8 HCT 37.9 PLTCT 426* AST 25 ALT 27 ALKPHOS 84 Estimated Creatinine Clearance: 90.8 mL/min (based on SCr of 0.92 mg/dL). Vitals: 02/13/21 0223 Weight: 81.8 kg (180 lb 6.4 oz) No results for input(s): PHART, PO2ART in the last 72 hours. Invalid input(s): PC02A No pertinent radiology. [facility] Associated attestation - Ian Constantino MD - 02/20/2021 2:37 PM MANAGER SHELL I have discussed this patient's care with the Nurse Practitioner and concur with content written but did not personally see and exam the patient today. Ian Constantino MD Med Consults 2 Pg [id number] documented in this encounter Nursing Notes * Destini Dotson - 02/16/2021 12:25 PM MANAGER SHELL Care Coordination - Inpatient Note Patient Name: Selena Mortensen Admission Date: 02/12/20211223 This CM called [employer] [place] [facility], , to schedule transporta tion home to [place], [place]. Trip reference #: [id number] Was then transferred to dispatch to ensure scheduling. This CM was hung up on tw ice, and by [phone], had not been able to confirm transportation. This CM followed up with patient and Psychiatry to update them on being unable t o confirm transportation, and patient stated that she would need to make some ca lls tonight to secure transportation with family for tomorrow. This CM to relay this information to staff. Destini Dotson 02/16/2021 [facility] documented in this encounter ED Notes * Qian Blood RN - 02/13/2021 12:48 AM MANAGER SHELL [facility] scheduled they report 4 hour ETA. [facility]ER [facility] * Qian Blood RN - 02/13/2021 12:12 AM MANAGER SHELL accepted for Team 1 for SI. Patient will need a Covid result b efore transport. [facility]ER [facility] * Qian Blood RN - 02/12/2021 9:58 PM MANAGER SHELL Presented to Carroll Stevenson, EKG and Consent faxed [facility]ER [facility] * David Amaya MD - 02/12/2021 5:19 PM MANAGER SHELL Images from the original note were not included. Selena Mortensen is a 30 y.o. female. Chief Complaint: Chief Complaint Patient presents with Suicidal physicians have been adjusting her medications; reports suicidal thoughts x co uple of weeks History of Present Illness: This is a 30-year-old female with a history of migraine headaches, depression pr esenting to the emergency department with complaint of depression, suicidal thou ghts. Plan of using a knife to herself. States she has had hospitalizations in the past for psych reasons, she is on psychiatric medications/depression medica tions, recent change of increasing Wellbutrin. She follows with a psychologist for talk therapy, neurology for migraines. Protective factors daughter, states she has multiple stressors including job, money, family, sick family members. Review of Systems: Review of Systems Constitutional: Negative for fever. HENT: Negative for sore throat. Eyes: Negative for visual disturbance. Respiratory: Negative for shortness of breath. Cardiovascular: Negative for chest pain. Gastrointestinal: Negative for abdominal pain. Genitourinary: Negative for dysuria. Musculoskeletal: Negative for back pain. Skin: Negative for rash. Neurological: Negative for headaches. Psychiatric/Behavioral: Positive for self-injury and suicidal ideas. Allergies: Patient has no known allergies. Past Medical History: Medical History: Diagnosis Date Depression Headache Impingement syndrome of shoulder Kidney stone Migraines Neck pain Past Surgical History: Surgical History: Procedure Laterality Date CERVICAL PLEXUS BLOCK 12/12/2012 SECTION 12/06/2014 BUNIONECTOMY Bilateral COLONOSCOPY Pertinent medical and surgical history reviewed Social History: Social History Tobacco Use Smoking status: Never Smoker Smokeless tobacco: Never Used Substance Use Topics Alcohol use: Not Currently Drug use: Never Social History Substance and Sexual Activity Drug Use Never Family History: Family History Problem Relation Age of Onset Neurological Problem Mother Myasthenia gravis Cancer Father leukemia and skin Diabetes Father Heart Disease Father Hypertension Father Migraines Sister Vitals: ED Vitals Date and Time T BP P RR SPO2P SPO2 User 02/12/21 1517 37 C (98.6 F) 152/99 -- 16 PER MINUTE 102 96 % HW Physical Exam: Physical Exam Vitals and nursing note reviewed. Constitutional: Appearance: Normal appearance. She is normal weight. HENT: Head: Normocephalic and atraumatic. Eyes: Extraocular Movements: Extraocular movements intact. Conjunctiva/sclera: Conjunctivae normal. Cardiovascular: Rate and Rhythm: Normal rate and regular rhythm. Pulmonary: Effort: Pulmonary effort is normal. Breath sounds: Normal breath sounds. Abdominal: General: Bowel sounds are normal. There is no distension. Palpations: Abdomen is soft. Tenderness: There is no abdominal tenderness. Musculoskeletal: General: Normal range of motion. Cervical back: Neck supple. Neurological: Mental Status: She is oriented to person, place, and time. Mental status is a t baseline. Psychiatric: Comments: Tearful Laboratory Results: Labs Reviewed CBC AND DIFF COMPREHENSIVE METABOLIC PANEL TSH WITH FREE T4 REFLEX ALCOHOL LEVEL AMPHETAMINES-URINE RANDOM BARBITURATES-URINE RANDOM BENZODIAZEPINES-URINE RANDOM CANNABINOIDS-URINE RANDOM COCAINE-URINE RANDOM PHENCYCLIDINES-URINE RANDOM METHADONE-URINE SCREEN OXYCODONE URINE SCREEN OPIATES 300 OR GREATER-URINE RANDOM ACETAMINOPHEN LEVEL SALICYLATE LEVEL URINALYSIS DIPSTICK REFLEX TO CULTURE URINALYSIS MICROSCOPIC REFLEX TO CULTURE UA REFLEX LABEL COMPREHENSIVE METABOLIC PANEL TSH WITH FREE T4 REFLEX POC URINE Radiology Interpretation: No orders to display EKG: Rate: 82 Rhythm: Sinus QTc: 408 Interpretation: Regular rate, regular rhythm, normal axis, no evidence of acute ST or T wave changes. ED Course: 30 y.o. female presented to the ED for suicidality. - Patient was evaluated by resident and attending physicians. - Available records were reviewed. - Patient's initial vitals reviewed. - Initial concern included, but was not limited to: Depression, suicidality. After studies wnl, urinalysis negative for signs of infection. Patient's TSH Ty lenol salicylates and alcohol levels wnl. She was offered Tylenol for headaches . This is very reassuring, patient is currently medically stable for psychiatric e valuation and possible admission. - Findings and plan for disposition discussed with patient. Patient understands and agrees with plan. Dispo: Medically stable for psychiatric evaluation ED Scoring: Coding Facility Administered Meds: Medications acetaminophen (TYLENOL EXTRA STRENGTH) tablet 1,000 mg (has no administration in time range) Clinical Impression: Clinical Impression None Disposition/Follow up ED Disposition None No follow-up provider specified. Medications: New Prescriptions No medications on file Procedure Notes: Procedures Attestation / Supervision: Agus Griggs MD Department of Emergency Medicine Voalte preferred | Callback [phone] Attestation / Supervision Note concerning Selena Mortensen: I personally perfo rmed the oscar portions of the E/M visit, discussed case with resident and concur with resident documentation of history, physical exam, assessment, and treatment plan unless otherwise noted. David Amaya MD [facility]ER [facility] * Sully Hannah RN - 02/12/2021 5:07 PM MANAGER SHELL Psychiatric Liaison Services Evaluation: Name: Selena Mortensen : 1990 Age : 30 y.o. Admission Date: 02/12/2021 LOS: 0 days Gender: Female Referred by: self-referred Accompanied by: friend Chief Complaint: Suicidal thoughts in conjunction with chronic migraines and de pression. History of Present Illness: 30 year old female with history of TBI at age 4 fol lowed by chronic migraines throughout her life. She is seen and treated by neuro logy at and had botox injections yesterday which at that time she expressed i ncreased depression and suicidal thoughts. She has been ruminating about suicide and thinking of cutting herself but states her daughter is her constant protect jay factor. She reports history of depression since 2005 with two hospitalizatio ns in the past. Has been on Wellbutrin for some time with increase in dosage 3 w eeks ago. She reports anxiety worse since increase. Headaches worse also. She st ates depression is chronic, recent irritability and "I'm never in a good mood". The patient is alert and oriented. She denies AH/VH or other chronic medical pro blems. She recently was taken off of Flexaril as her doctor was concerned with s erotonin syndrome. She has chronic neck spasms and discomfort in her neck. She h as flat affect and depressed mood. She is requesting admission to evaluate her m edications and treat her depression. Psych History: Admitted 2006 and 2018 in [place]. Sees a psychologist. Past Medical History: TBI at age 4, neck spasms, evaluation pending for chronic fevers -Lupus, labs being evaluated elsewhere. Past Surgical History: none reported. Substance Abuse History: Social History Tobacco Use Smoking status: Never Smoker Smokeless tobacco: Never Used Substance Use Topics Alcohol use: Not Currently Drug use: Never Social History Substance and Sexual Activity Drug Use Never Family History: Family History Problem Relation Age of Onset Neurological Problem Mother Myasthenia gravis Cancer Father leukemia and skin Diabetes Father Heart Disease Father Hypertension Father Migraines Sister Allergies: No Known Allergies Medications: (Not in a hospital admission) Social History: Marital Status: Single Living Situation: Lives independently (6 yo daughter) Developmental History: wnl Mental Status Examination: Flow of Thought: Linear, Restricted Intellect: Normal Sensorium: Normal Memory: Normal, Inability to concentrate Insight / Judgment: Good judgment, Fair insight General Appearance: Expressionless, Sad Behavior: Calm, Cooperative, Withdrawn Motor Activity: Decreased amount Speech: Soft, Reduced amount Mood / Affect: Depressed mood, Flat affect Content Of Thought: Denies auditory hallucinations, Denies homicidal thoughts, D enies visual hallucinations, Ideas of hopelessness, Ideas of worthlessness, Suic idal thoughts Conduct Disturbance: Conduct appropriate Eating/Sleep Disturbance: Increased appetite, Insomnia (Lunesta, difficulty stay ing asleep) Interview Behavior: Normal Med/TX Compliance: Meds-always, TX-always Suicide Risk Initial Screening: Suicide Risk - Green Suicide Severity Rating Scale 1. In the past month have you wished you were or wished you could go to sle ep and not wake up?: Yes 2. In the past month have you actually had any thoughts of killing yourself?: Ye s 3. In the past month have you been thinking about how you might kill yourself?: Yes 4. In the past month have you had these thoughts and had some intention of actin g on them?: No 5. In the past month have you started to work out or worked out the details of h ow to kill yourself? Do you intend to carry out this plan?: No 6. In your lifetime have you ever done anything, started to do anything, or prep ared to do anything to end your life?: Yes 6a. How long ago did you do any of these?: Over a year ago Suicide Risk Level: Moderate Risk : Suicide Risk Re-Screening: Suicide Risk Assesssment: Disposition: Admit pending medical clearance Reviewed: Dr Griggs Attending Physician: Dr Amaya [facility]ER [facility] documented in this encounter Miscellaneous Notes * Care Plan - Rudolph Robledo RN - 02/17/2021 12:15 PM MANAGER SHELL Problem: Discharge Planning Goal: Participation in plan of care Outcome: Goal Achieved Goal: Knowledge regarding plan of care Outcome: Goal Achieved Goal: Prepared for discharge Outcome: Goal Achieved Problem: Harm to self, moderate risk of suicide Goal: Absence of Harm to Self Outcome: Goal Achieved Problem: Harm to self, low risk of suicide Goal: Absence of harm to self, low risk of suicide Outcome: Goal Achieved Problem: Violence, self/other-directed, Risk of Goal: Absence of violence Outcome: Goal Achieved Goal: Knowledge of risk for violence, self/other-directed Outcome: Goal Achieved GER SHELL * Behavioral Health Treatment Team - Belkis Downey - 02/17/2021 12:11 PM MANAGER SHELL TREATMENT TEAM NOTE Name: Selena Mortensen : 1990 Age : 30 y.o. Admission Date: 02/12/2021 LOS: 4 days Attendees: UR: Deepti Avendano LMSW Nursing: Mi Horton, RN, BSN Therapy: Marli Segal, STACIE, LMAC Therapy: SONA Swift, LCP CM: Oleg Stovall LMSW CM: Destini Dotson [facility] CM: Janny Cordova LPC Rec Therapy: ALETHEA Eisenberg Nurse Clerical Specialist: Blu Haas RN Pharmacy: Cali Herndon PharmD Psychology: Cy Ray, PhD Psychology: Jose Andrea, MS4 Psychology: DIANA Marks, PhD Psychiatry: Selena Marshall, DO Psychiatry: Bj Hoffman, DIRECTOR TALENT MANAGEMENT-ANALYTICAL CLERK Significant Points Discussed: Denies all psych, calm and cooperative in milieu. Attending groups. Working on transport to home. Treatment Plan Discussion: Discharge today. GER SHELL * Group Note - Belkis Downey - 02/17/2021 11:31 AM MANAGER SHELL Name: Selena Mortensen : 1990 Age : 30 y.o. Admission Date: 02/12/2021 LOS: 4 days Group Topic: BH Leisure Activities Group Date: 02/17/2021 Start Time: 929 End Time: 1029 Facilitators: Belkis Dwoney Number of Participants: 10 Group Focus: coping skills, leisure skills, relaxation, self-awareness, and self -esteem Treatment Modality: Recreation Therapy Interventions utilized were leisure development, mental fitness, and other exerc ise and stretch to music, guided imagery/meditation Purpose: enhance coping skills and reinforce self-care Name: Selena Date of : 1990 MR: [id number] Level of Participation: active Quality of Participation: attentive, cooperative and engaged Interactions with others: gave feedback Mood/Affect: appropriate and positive Cognition: coherent/clear and goal directed Progress: Moderate Plan: to continue treatment GER SHELL * Care Plan - Elvira Daniel RN - 02/16/2021 9:26 PM MANAGER SHELL Pt has been out in milieu, participating in groups and socializing with peers. P t's behavior is appropriate in milieu. Mood and behavior have been stable. Pt de nies SI/HI/AHV. Endorses anxiety 5/10 and requested prn med. Denies depression, reports change of environment helped her depression. Endorses back pain 08/21. Pt is med compliant. No behavioral issues, will continue to monitor... Problem: Discharge Planning Goal: Participation in plan of care Outcome: Goal Ongoing Goal: Knowledge regarding plan of care Outcome: Goal Ongoing Goal: Prepared for discharge Outcome: Goal Ongoing Problem: Harm to self, moderate risk of suicide Goal: Absence of Harm to Self Outcome: Goal Ongoing Problem: Harm to self, low risk of suicide Goal: Absence of harm to self, low risk of suicide Outcome: Goal Ongoing Problem: Violence, self/other-directed, Risk of Goal: Absence of violence Outcome: Goal Ongoing Goal: Knowledge of risk for violence, self/other-directed Outcome: Goal Ongoing GER SHELL * Care Plan - Renny Nath RN - 02/16/2021 3:23 PM MANAGER SHELL Denies S/I,H/I,AV/H. Medication compliant. Eating drinking well. Attending group s throughout day. Interacting with peers. Problem: Discharge Planning Goal: Participation in plan of care Outcome: Goal Ongoing Goal: Knowledge regarding plan of care Outcome: Goal Ongoing Goal: Prepared for discharge Outcome: Goal Ongoing Problem: Harm to self, moderate risk of suicide Goal: Absence of Harm to Self Outcome: Goal Ongoing Problem: Harm to self, low risk of suicide Goal: Absence of harm to self, low risk of suicide Outcome: Goal Ongoing Problem: Violence, self/other-directed, Risk of Goal: Absence of violence Outcome: Goal Ongoing Goal: Knowledge of risk for violence, self/other-directed Outcome: Goal Ongoing GER SHELL * Group Note - Marli Segal - 02/16/2021 3:14 PM MANAGER SHELL Name: Selena Mortensen : 1990 Age : 30 y.o. Admission Date: 02/12/2021 LOS: 3 days Group Topic: BH Self-Care Group Date: 02/16/2021 Start Time: 1145 End Time: 1230 Facilitators: Marli Segal Number of Participants: 7 Group Focus: other self care exploration in six different realms, including spir itual, emotional, physical, professional, social, practical. Patient encouraged to share their personal experiences with self care and explore application. Treatment Modality: Group Psychotherapy Interventions utilized were exploration, patient education, and support Purpose: enhance coping skills and reinforce self-care Name: Selena Date of : 1990 MR: [id number] Level of Participation: moderate Quality of Participation: cooperative Interactions with others: gave feedback Mood/Affect: appropriate Triggers (if applicable): none Cognition: coherent/clear Progress: Minimal Response: engaged in treatment Plan: to continue treatment GER SHELL * Group Note - Belkis Downey - 02/16/2021 12:47 PM MANAGER SHELL Name: Selena Mortensen : 1990 Age : 30 y.o. Admission Date: 02/12/2021 LOS: 3 days Group Topic: BH Leisure Activities Group Date: 02/16/2021 Start Time: 1100 End Time: 1145 Facilitators: Belkis Downey Number of Participants: 7 Group Focus: communication, healthy friendships, leisure skills, self-esteem, an d social skills Treatment Modality: Recreation Therapy Interventions utilized were group exercise and leisure development Purpose: improve communication skills and reinforce self-care Name: Selena Date of : 1990 MR: [id number] Level of Participation: active Quality of Participation: attentive and cooperative Interactions with others: gave feedback Mood/Affect: appropriate Cognition: goal directed Progress: Moderate Plan: to continue treatment GER SHELL * Group Note - Claudia Sánchez - 02/16/2021 12:44 PM MANAGER SHELL Name: Selena Mortensen : 1990 Age : 30 y.o. Admission Date: 02/12/2021 LOS: 3 days Group Topic: BH Coping Skills Group Date: 02/16/2021 Start Time: 1015 End Time: 1100 Facilitators: Claudia Sánchez Number of Participants: 6 Group Focus: coping skills, feeling awareness/expression, problem solving, and s elf-awareness Treatment Modality: Music Therapy Interventions utilized were exploration, other active music listening, reminisce nce, story telling, and support Purpose: enhance coping skills, express feelings, increase insight, and reinforc e self-care MT began group by checking in with patient's current emotional status. Patients expressed that they were feeling good and were having an ok day. MT disucssed wi th patients how we can utilize music to improve and regulate emotison. Patients were prompted to identify songs that improved their mood. Name: Selena Date of : 1990 MR: [id number] Level of Participation: active Quality of Participation: attentive, cooperative and engaged Interactions with others: gave feedback Mood/Affect: appropriate Triggers (if applicable): N/A Cognition: coherent/clear Progress: Moderate Response: Patient actively participated in group and provided feedback during di scussion. Patient shared her song, "ean you." Plan: to continue treatment GER SHELL * Care Plan - Dewayne Guevara RN - 02/15/2021 10:11 PM MANAGER SHELL Patient denies pain, depression, SI/HI/AVH. Pt reports anxiety 05/21. Pt seen ou t in dayroom interacting with peers and watching a movie. Pt compliant with HS m edications and evening snack. Pt has been calm and cooperative. AWAS assessed pe r protocol (See Doc Flowsheet). No signs and symptoms of withdrawal at this time . Pt remains on 15 minute checks for safety. Problem: Discharge Planning Goal: Participation in plan of care Outcome: Goal Ongoing Goal: Knowledge regarding plan of care Outcome: Goal Ongoing Goal: Prepared for discharge Outcome: Goal Ongoing Problem: Harm to self, moderate risk of suicide Goal: Absence of Harm to Self Outcome: Goal Ongoing Problem: Harm to self, low risk of suicide Goal: Absence of harm to self, low risk of suicide Outcome: Goal Ongoing Problem: Violence, self/other-directed, Risk of Goal: Absence of violence Outcome: Goal Ongoing Goal: Knowledge of risk for violence, self/other-directed Outcome: Goal Ongoing GER SHELL * Care Plan - Renny Nath RN - 02/15/2021 3:48 PM MANAGER SHELL Denies S/I,H/I,AV/H. Medication complaint. Attending groups throughout day. Inte racting with peers. No management issues. Problem: Discharge Planning Goal: Participation in plan of care Outcome: Goal Ongoing Goal: Knowledge regarding plan of care Outcome: Goal Ongoing Goal: Prepared for discharge Outcome: Goal Ongoing Problem: Harm to self, moderate risk of suicide Goal: Absence of Harm to Self Outcome: Goal Ongoing Problem: Harm to self, low risk of suicide Goal: Absence of harm to self, low risk of suicide Outcome: Goal Ongoing Problem: Violence, self/other-directed, Risk of Goal: Absence of violence Outcome: Goal Ongoing Goal: Knowledge of risk for violence, self/other-directed Outcome: Goal Ongoing GER SHELL * Group Note - Kaitlyn Díaz - 02/15/2021 2:07 PM MANAGER SHELL Name: Selena Mortensen : 1990 Age : 30 y.o. Admission Date: 02/12/2021 LOS: 2 days Group Topic: BH Coping Skills Group Date: 02/15/2021 Start Time: 1330 End Time: 1400 Facilitators: Kaitlyn Díaz Number of Participants: 5 Group Focus: anxiety, check in, and coping skills Treatment Modality: Cognitive Behavioral Therapy and Group Psychotherapy Interventions utilized were exploration and group exercise Purpose: enhance coping skills and reinforce self-care Name: Selena Date of : 1990 MR: [id number] Level of Participation: active Quality of Participation: attentive and cooperative Interactions with others: gave feedback Mood/Affect: appropriate and brightens with interaction Triggers (if applicable): NA Cognition: coherent/clear and insightful Progress: Significant Response: Plan: to continue treatment GER SHELL * Group Note - Belkis Downey - 02/15/2021 12:52 PM MANAGER SHELL Name: Selena Mortensen : 1990 Age : 30 y.o. Admission Date: 02/12/2021 LOS: 2 days Group Topic: Leisure Activities Group Date: 02/15/2021 Start Time: 1030 End Time: 1115 Facilitators: Belkis Downey Number of Participants: 5 Group Focus: healthy friendships, leisure skills, self-esteem, and social skills Treatment Modality: Recreation Therapy Interventions utilized were group exercise and leisure development Purpose: improve communication skills and reinforce self-care Name: Selena Date of : 1990 MR: [id number] Level of Participation: active Quality of Participation: attentive and cooperative Interactions with others: gave feedback Mood/Affect: appropriate Cognition: goal directed Progress: Moderate Plan: to continue treatment GER SHELL * Group Note - Oleg Stovall - 02/14/2021 2:26 PM MANAGER SHELL Name: Selena Mortensen : 1990 Age : 30 y.o. Admission Date: 02/12/2021 LOS: 1 day Group Topic: Mindfulness Group Date: 02/14/2021 Start Time: 1330 End Time: 1430 Facilitators: Oleg Stovall Number of Participants: 4 Group Focus: acceptance and coping skills Treatment Modality: Group Psychotherapy and Psychoeducation Interventions utilized were patient education, story telling, and support Purpose: enhance coping skills and increase insight Name: Selena Date of : 1990 MR: [id number] Level of Participation: active Quality of Participation: attentive, engaged and offered feedback Interactions with others: gave feedback Mood/Affect: appropriate Triggers (if applicable): NA Cognition: coherent/clear Progress: Moderate Response: Pt present for group, engaged in group discussion Plan: to continue treatment GER SHELL * Group Note - Claudia Sánchez - 02/14/2021 12:37 PM MANAGER SHELL Name: Selena Mortensen : 1990 Age : 30 y.o. Admission Date: 02/12/2021 LOS: 1 day Group Topic: BH Positive Problem Solving Group Date: 02/14/2021 Start Time: 1130 End Time: 1230 Facilitators: Claudia Sánchez Number of Participants: 5 Group Focus: coping skills, feeling awareness/expression, goals/reality orientat ion, problem solving, reminiscence, and self-awareness Treatment Modality: Music Therapy Interventions utilized were exploration, other song writing and eliot analysis, reminiscence, story telling, and support Purpose: enhance coping skills, express feelings, increase insight, and reinforc e self-care Music Therapist began by prompting patients to define resilience and further fac ilitated a discussion on the concept and the 7 skills of resilience. DEENA sibley cee the main skills that were going to be focused on during group. MT introduced the song "In my blood" and facilitated a eliot analysis on this song. Patients were then provided a fill in the blank and were guided to rewrite the lyrics to express their mental health journey. Patients were then allowed to share their l yrics with the group if they felt comfortable. MT then introduced "Recovery" and facilitated a eliot analysis on this song with the same rewriting process but f ocusing on forward thinking/recovery/healing and cultivating their belief in the ir ability to cope and attitude of survivorship. Patients were allowed to share if they felt comfortable. Name: Selena Date of : 1990 MR: [id number] Level of Participation: active Quality of Participation: attentive, cooperative and engaged Interactions with others: gave feedback and pulled from group for clinical purpo ses Mood/Affect: appropriate Triggers (if applicable): N/A Cognition: coherent/clear Progress: Moderate Response: Patient actively participated in group. Patient was pulled from group for clinical purposes but returned to complete the session. Plan: to continue treatment GER SHELL * Care Plan - Ngozi Kelly RN - 02/14/2021 9:03 AM MANAGER SHELL Patient visible in the milieu all day. Blunt affect. Calm, cooperative on intera ction. Patient reports anxiety and depression as "improving". Patient did not r eport SI HI AhVh. Multiple requests for as needed medications thorough the day. Patient compliant with meals, medications. Problem: Discharge Planning Goal: Participation in plan of care Outcome: Goal Ongoing Goal: Knowledge regarding plan of care Outcome: Goal Ongoing Goal: Prepared for discharge Outcome: Goal Ongoing Problem: Harm to self, moderate risk of suicide Goal: Absence of Harm to Self Outcome: Goal Ongoing Problem: Harm to self, low risk of suicide Goal: Absence of harm to self, low risk of suicide Outcome: Goal Ongoing Problem: Violence, self/other-directed, Risk of Goal: Absence of violence Outcome: Goal Ongoing Goal: Knowledge of risk for violence, self/other-directed Outcome: Goal Ongoing GER SHELL * Group Note - Claudia Sánchez - 02/13/2021 3:09 PM MANAGER SHELL Name: Selena Mortensen : 1990 Age : 30 y.o. Admission Date: 02/12/2021 LOS: 0 days Group Topic: BH Coping Skills Group Date: 02/13/2021 Start Time: 1400 End Time: 1445 Facilitators: Claudia Sánchez Number of Participants: 6 Group Focus: coping skills, feeling awareness/expression, reminiscence, self-mable reness, and self-esteem Treatment Modality: Music Therapy Interventions utilized were group exercise, other active music listening eliot a nalysis, reminiscence, story telling, and support Purpose: enhance coping skills, express feelings, increase insight, and reinforc e self-care Music Therapist facilitated a discussion on how we utilize music for different a spects of our lives and prompted patients to identify a song that helps them wit h what topic they are currently struggling with. MT would play the song and have patients discuss why they chose it and connect to others through music. Name: Selena Date of : 1990 MR: [id number] Level of Participation: active Quality of Participation: attentive, cooperative and engaged Interactions with others: gave feedback Mood/Affect: appropriate Triggers (if applicable): N/A Cognition: coherent/clear Progress: Moderate Response: Patient actively participated in group and provided feedback during di scussion. Patient shared and discussed her song. Plan: to continue treatment GER SHELL * Group Note - Emily Ponce - 02/13/2021 2:14 PM MANAGER SHELL Name: Selena Mortensen : 1990 Age : 30 y.o. Admission Date: 02/12/2021 LOS: 0 days Group Topic: BH Relaxation and Self-Soothing Group Date: 02/13/2021 Start Time: 1300 End Time: 1400 Facilitators: Emily Ponce Number of Participants: 5 Group Focus: coping skills Treatment Modality: Art Therapy Interventions utilized were assignment and exploration Purpose: express feelings and reinforce self-care Name: Selena Date of : 1990 MR: [id number] Level of Participation: active Quality of Participation: attentive, cooperative and engaged Interactions with others: gave feedback Mood/Affect: brightens with interaction Cognition: coherent/clear Progress: Moderate Plan: to continue treatment GER SHELL * Group Note - Breezy Chavez - 02/13/2021 2:06 PM MANAGER SHELL Name: Selena Mortensen : 1990 Age : 30 y.o. Admission Date: 02/12/2021 LOS: 0 days Group Topic: BH Cognitive Distortions Group Date: 02/13/2021 Start Time: 1150 End Time: 1230 Facilitators: Breezy Chavez Number of Participants: 10 Group Focus: other CBT and Thought Strategies Treatment Modality: Cognitive Behavioral Therapy and Group Psychotherapy Interventions utilized were exploration, patient education, and support Purpose: enhance coping skills, explore maladaptive thinking, increase insight, and reinforce self-care Name: Selena Date of : 1990 MR: [id number] Level of Participation: Initially Patient resisted turning off her cellphone. S he sat in the back of the room and did not engage in the discussion. Quality of Participation: oppositional and quiet Interactions with others: did not interact Mood/Affect: appropriate Triggers (if applicable): NA Cognition: concrete Progress: Minimal Response: Patient at one point was pulled for clinical reasons and returned. Plan: to continue treatment GER SHELL * Group Note - Leandra Rivera - 02/13/2021 1:03 PM MANAGER SHELL Name: Selena Mortensen : 1990 Age : 30 y.o. Admission Date: 02/12/2021 LOS: 0 days Group Topic: BH Effective Communication and Conflict Management Group Date: 02/13/2021 Start Time: 30 End Time: 1015 Facilitators: Leandra Rivera Number of Participants: 6 Group Focus: communication, coping skills, feeling awareness/expression, and karime f-awareness Treatment Modality: Recreation Therapy Interventions utilized were exploration, group exercise, patient education, and support Purpose: express feelings, improve communication skills, and increase insight The recreation therapist provided the group with instructions and expectations t o be followed throughout the group. The therapist invited patients to play "OnePageCRM" in which they had to get peers to guess a word without using that word under a time limit . Recreation therapist processed with the group about commun ication challenges during the game and communication strategies they used for vasquez ccess. Group discussed effective communication skills that they used in the game that could be useful in their own relationships. Name: Selena Date of : 1990 MR: [id number] Level of Participation: active Quality of Participation: attentive, cooperative and engaged Interactions with others: gave feedback Mood/Affect: euthymic Triggers (if applicable): not applicable Cognition: coherent/clear Progress: Moderate Response: Patient participated fully in all parts of group. Plan: to continue treatment GER SHELL * Behavioral Health Treatment Team - Emily Ponce - 02/13/2021 9:51 AM MANAGER SHELL TREATMENT TEAM NOTE Name: Selena Mortensen : 1990 Age: 30 y.o. Admission Date: 02/12/2021 Attendees: UR: Deepti Avendano LMSW Nursing: Nella Manning RN Therapy: STACIE Bang, LMAC Therapy: SONA Swift, LCP CM: Destini Dotson LMSW CM: Janny Cordova LPC Art Therapy: MARII Palmer, MODEL MAKING SUPERVISOR Nurse Clerical Specialist: Blu Haas RN Pharmacy: [facility] Thompson PharmD Psychiatry: Selena Muniz, Significant Points Discussed: New admission, SI, calm and cooperative Treatment Plan Discussion: Team will follow up today GER SHELL * Care Plan - Francia Christian RN - 02/13/2021 9:28 AM MANAGER SHELL Problem: Discharge Planning Goal: Participation in plan of care Outcome: Goal Ongoing Goal: Knowledge regarding plan of care Outcome: Goal Ongoing Goal: Prepared for discharge Outcome: Goal Ongoing Problem: Harm to self, moderate risk of suicide Goal: Absence of Harm to Self Outcome: Goal Ongoing Problem: Harm to self, low risk of suicide Goal: Absence of harm to self, low risk of suicide Outcome: Goal Ongoing Problem: Violence, self/other-directed, Risk of Goal: Absence of violence Outcome: Goal Ongoing Goal: Knowledge of risk for violence, self/other-directed Outcome: Goal Ongoing GER SHELL * Care Plan - Barbara Willett - 02/13/2021 4:09 AM MANAGER SHELL Problem: Discharge Planning Goal: Participation in plan of care Outcome: Goal Ongoing Goal: Knowledge regarding plan of care Outcome: Goal Ongoing Goal: Prepared for discharge Outcome: Goal Ongoing Problem: Harm to self, moderate risk of suicide Goal: Absence of Harm to Self Outcome: Goal Ongoing Problem: Harm to self, low risk of suicide Goal: Absence of harm to self, low risk of suicide Outcome: Goal Ongoing Problem: Violence, self/other-directed, Risk of Goal: Absence of violence Outcome: Goal Ongoing Goal: Knowledge of risk for violence, self/other-directed Outcome: Goal Ongoing GER SHELL documented in this encounter Plan of Treatment Not on filedocumented as of this encounter Goals Goal Patient Associated Recent Progress Patient-Stat Aut hor Goal Type Problems ed? Complete 1 Mindfulness Lifestyle On track (02/13/2021 Yes Lara, Activity Each Day 4:11 AM MANAGER SHELL) RHONDA Solo Note: "I need to get a more positive out look on life and to let my daughter see me more happy than I am sad." " Migraines make me depressed and hard to do anything." TBI in 1993 documented as of this encounter Procedures Comments Procedure Name Priority Date/Time Associated Diag nosis COVID-19 (SARS-COV-2) PCR STAT 02/12/2021 10:16 PM MANAGER SHELL UA REFLEX LABEL STAT 02/12/2021 6:24 PM MANAGER SHELL URINALYSIS MICROSCOPIC STAT 02/12/2021 REFLEX TO CULTURE 6:24 PM MANAGER SHELL HC URINALYSIS UAR STAT 02/12/2021 6:24 PM MANAGER SHELL HC OPIATES 300, PTUDS STAT 02/12/2021 6:24 PM MANAGER SHELL HC METHADONE URINE SCREEN STAT 02/12/2021 6:24 PM MANAGER SHELL HC PHENCYCLIDINES; QUAL STAT 02/12/2021 6:24 PM MANAGER SHELL HC OXYCODONE URINE SCREEN STAT 02/12/2021 6:24 PM MANAGER SHELL HC COCAINE; QUAL STAT 02/12/2021 6:24 PM MANAGER SHELL HC CANNABINOIDS; QUAL STAT 02/12/2021 6:24 PM MANAGER SHELL HC BENZODIAZEPINES, QUAL STAT 02/12/2021 6:24 PM MANAGER SHELL HC BARBITURATES STAT 02/12/2021 6:24 PM MANAGER SHELL HC AMPHETAMINES QUAL, STAT 02/12/2021 URINE 6:24 PM MANAGER SHELL HC TSH SCREEN STAT 02/12/2021 5:11 PM MANAGER SHELL HC CBC W/ AUTOMATED DIFF STAT 02/12/2021 5:11 PM MANAGER SHELL HC ALCOHOL STAT 02/12/2021 5:11 PM MANAGER SHELL HC ACETAMINOPHEN(TYLENOL) STAT 02/12/2021 5:11 PM MANAGER SHELL HC SALICYLATE STAT 02/12/2021 5:11 PM MANAGER SHELL HC COMPREHENSIVE STAT 02/12/2021 METABOLIC PANEL 5:11 PM MANAGER SHELL ECG 12-LEAD STAT 02/12/2021 4:21 PM MANAGER SHELL ECG-SCAN 02/12/2021 12:00 AM MANAGER SHELL documented in this encounter Results * COVID-19 (SARS-COV-2) PCR (02/12/2021 10:16 PM MANAGER SHELL) COVID-19 FLOCKED SWAB [facility] (SARS-CoV-2) NASOPHARYNGEAL PCR Source COVID-19 NOT DETECTED DN-NOT DETECTED [facility] (SARS-CoV-2) Comment: PCR This assay is designed to detect the S and/or ORF1ab genes of SARS-CoV-2 using nucleic acid amplification. A "Not Detected" result does not preclude the possibility of SARS-CoV-2 infection since the adequacy of sample collection and/or low viral burden may result in the presence of viral nucleic acids below the analytical sensitivity of this test method. Test results should be used along with other clinical and laboratory data in making the diagnosis. Test parameters have not been validated for screening in asymptomatic patients.This test has not been FDA cleared or approved. This test is authorized for use under the FDA Emergency Use Authorization and performance characteristics have been verified by the [facility]. Fact sheet for providers: https://www.fda.gov/media/1720 85/download Fact sheet for patients: https://www.fda.gov/media/3141 87/download Specimen Flocked Swab - Nasopharyngeal structure (body structure) Performing Organization Address City/State/ZIP Code P nav Number MAIN LAB [address] [place] [address] * UA REFLEX LABEL (02/12/2021 6:24 PM MANAGER SHELL) UA Reflex Criteria for reflex to culture [facility] Culture are WBC>10, Positive Nitrit e, and/or >=+1 leukocytes. If quantity is not sufficient, an addendum will follow. Specimen Urine specimen (specimen) Performing Organization Address [facility] P nav Number [facility] [address] [place] [address] * URINALYSIS MICROSCOPIC REFLEX TO CULTURE (02/12/2021 6:24 PM MANAGER SHELL) WBCs,UA 2-10 0 - 2 /HPF [facility] RBCs,UA 0-2 0 - 3 /HPF [facility] Comment,UA Criteria for reflex to culture [facility] are WBC>10, Positive Nitrite, and/or >=+1 leukocytes. If quantity is not sufficient, an addendum will follow. MucousUA TRACE [facility] Squamous 5-10 0 - 5 [facility] Epithelial Cells Specimen Urine specimen (specimen) Performing Organization Address [facility] P nav Number [facility] [address] [place] [address] * (ABNORMAL) URINALYSIS DIPSTICK REFLEX TO CULTURE (02/12/2021 6:24 PM MANAGER SHELL) Color,UA YELLOW [facility] Turbidity,UA 1+ (A) CLEAR-CLEAR [facility] Specific 1.017Comment: NOTE NEW 1.005 - 1.030 [facility] [place]-Urine REFERENCE RANGES pH,UA 5.0 5.0 - 8.0 [facility] Protein,UA NEG NEG-NEG [facility] Glucose,UA NEG NEG-NEG [facility] Ketones,UA NEG NEG-NEG [facility] Bilirubin,UA NEG NEG-NEG [facility] Blood,UA NEG NEG-NEG [facility] Urobilinogen,UA NORMAL NORM-NORMAL [facility] Nitrite,UA NEG NEG-NEG [facility] Leukocytes,UA NEG NEG-NEG [facility] Urine Ascorbic NEG NEG-NEG [facility] Acid, UA Specimen Urine specimen (specimen) Performing Organization Address [facility] P nav Number [facility] [address] [place] [address] * OPIATES 300 OR GREATER-URINE RANDOM (02/12/2021 6:24 PM MANAGER SHELL) Opiates 300 NEG NEG-NEG [facility] Comment: RESULTS WERE OBTAINED BY IMMUNOASSAY AND ARE PRESUMPTIVE ONLY. POSITIVE INDICATES THE PRESENCE OF SUBSTANCE WITH CHARACTERISTICS SIMILAR TO DRUG-DRUG CLASS OR METABOLITE IN CONC. EQUAL TO OR EXCEEDING VALUES LISTED. OPIATES 300 NG/ML Specimen Urine specimen (specimen) Performing Organization Address [facility] P nav Number [facility]IN [facility] [address] [place] [address] * OXYCODONE URINE SCREEN (02/12/2021 6:24 PM MANAGER SHELL) Oxycodone, NEG NEG-NEG MAIN LAB Urine Comment: RESULTS WERE OBTAINED BY IMMUNOASSAY AND ARE PRESUMPTIVE ONLY. POSITIVE INDICATES THE PRESENCE OF SUBSTANCE WITH CHARACTERISTICS SIMILAR TO DRUG-DRUG CLASS OR METABOLITE IN CONC. EQUAL TO OR EXCEEDING VALUES LISTED. OXYCODONE 300 NG/ML Specimen Urine - Urine specimen (specimen) Performing Organization Address [facility] P nav Number MAIN LAB [address] [place] [address] * METHADONE-URINE SCREEN (02/12/2021 6:24 PM MANAGER SHELL) Methadone NEG NEG-NEG MAIN LAB Comment: RESULTS WERE OBTAINED BY IMMUNOASSAY AND ARE PRESUMPTIVE ONLY. POSITIVE INDICATES THE PRESENCE OF SUBSTANCE WITH CHARACTERISTICS SIMILAR TO DRUG-DRUG CLASS OR METABOLITE IN CONC. EQUAL TO OR EXCEEDING VALUES LISTED. METHADONE 300 NG/ML Specimen Urine specimen (specimen) Performing Organization Address [facility] P nav Number [facility] [address] [place] [address] * PHENCYCLIDINES-URINE RANDOM (02/12/2021 6:24 PM MANAGER SHELL) Phencyclidine NEG NEG-NEG MAIN LAB (PCP) Comment: RESULTS WERE OBTAINED BY IMMUNOASSAY AND ARE PRESUMPTIVE ONLY. POSITIVE INDICATES THE PRESENCE OF SUBSTANCE WITH CHARACTERISTICS SIMILAR TO DRUG-DRUG CLASS OR METABOLITE IN CONC. EQUAL TO OR EXCEEDING VALUES LISTED. PHENCYCLIDINE (PCP) 25 NG/ML Specimen Urine - Urine specimen (specimen) Performing Organization Address [facility] P nav Number [facility] [address] [place] [address] * COCAINE-URINE RANDOM (02/12/2021 6:24 PM MANAGER SHELL) Cocaine-Urine NEG NEG-NEG MAIN LAB Comment: RESULTS WERE OBTAINED BY IMMUNOASSAY AND ARE PRESUMPTIVE ONLY. POSITIVE INDICATES THE PRESENCE OF SUBSTANCE WITH CHARACTERISTICS SIMILAR TO DRUG-DRUG CLASS OR METABOLITE IN CONC. EQUAL TO OR EXCEEDING VALUES LISTED. COCAINE 300 NG/ML Specimen Urine - Urine specimen (specimen) Performing Organization Address [facility] P nav Number [facility] [address] [place] [address] * CANNABINOIDS-URINE RANDOM (02/12/2021 6:24 PM MANAGER SHELL) THC NEG NEG-NEG MAIN LAB Comment: RESULTS WERE OBTAINED BY IMMUNOASSAY AND ARE PRESUMPTIVE ONLY. POSITIVE INDICATES THE PRESENCE OF SUBSTANCE WITH CHARACTERISTICS SIMILAR TO DRUG-DRUG CLASS OR METABOLITE IN CONC. EQUAL TO OR EXCEEDING VALUES LISTED. CANNABINOIDS 50 NG/ML Specimen Urine - Urine specimen (specimen) Performing Organization Address [facility] P nav Number MAIN LAB [address] [place] [address] * (ABNORMAL) BENZODIAZEPINES-URINE RANDOM (02/12/2021 6:24 PM MANAGER SHELL) Benzodiazepines POS (A) NEG-NEG MAIN LAB Comment: RESULTS WERE OBTAINED BY IMMUNOASSAY AND ARE PRESUMPTIVE ONLY. POSITIVE INDICATES THE PRESENCE OF SUBSTANCE WITH CHARACTERISTICS SIMILAR TO DRUG-DRUG CLASS OR METABOLITE IN CONC. EQUAL TO OR EXCEEDING VALUES LISTED. BENZODIAZEPINES 200 NG/ML Specimen Urine - Urine specimen (specimen) Performing Organization Address [facility] P nav Number MAIN LAB [address] [place] [address] * BARBITURATES-URINE RANDOM (02/12/2021 6:24 PM MANAGER SHELL) Barbiturates,Ur NEG NEG-NEG MAIN LAB ine Comment: RESULTS WERE OBTAINED BY IMMUNOASSAY AND ARE PRESUMPTIVE ONLY. POSITIVE INDICATES THE PRESENCE OF SUBSTANCE WITH CHARACTERISTICS SIMILAR TO DRUG-DRUG CLASS OR METABOLITE IN CONC. EQUAL TO OR EXCEEDING VALUES LISTED. BARBITURATES 200 NG/ML Specimen Urine - Urine specimen (specimen) Performing Organization Address [facility] P nav Number [facility] [address] [place] [address] * AMPHETAMINES-URINE RANDOM (02/12/2021 6:24 PM MANAGER SHELL) Amphetamines NEG NEG-NEG MAIN LAB Comment: RESULTS WERE OBTAINED BY IMMUNOASSAY AND ARE PRESUMPTIVE ONLY. POSITIVE INDICATES THE PRESENCE OF SUBSTANCE WITH CHARACTERISTICS SIMILAR TO DRUG-DRUG CLASS OR METABOLITE IN CONC. EQUAL TO OR EXCEEDING VALUES LISTED. AMPHETAMINES 1000 NG/ML Specimen Urine - Urine specimen (specimen) Performing Organization Address [facility] P nav Number [facility] [address] [place] [address] * TSH WITH FREE T4 REFLEX (02/12/2021 5:11 PM MANAGER SHELL) TSH 1.72 0.35 - 5.00 MCU/ML [facility] Specimen Performing Organization Address City/[facility]/ZIP Code P nav Number [facility]IN [facility] [address] [place] [phone] * (ABNORMAL) COMPREHENSIVE METABOLIC PANEL (02/12/2021 5:11 PM MANAGER SHELL) Sodium 141 137 - 147 MMOL/L [facility] Potassium 4.0 3.5 - 5.1 MMOL/L [facility] Chloride 105 98 - 110 MMOL/L [facility] Glucose 109 (H) 70 - 100 MG/DL [facility] Blood Urea 9 7 - 25 MG/DL [facility] Nitrogen Creatinine 0.92 0.4 - 1.00 MG/DL [facility] Calcium 9.4 8.5 - 10.6 MG/DL [facility] Total Protein 8.0 6.0 - 8.0 G/DL [facility] Total Bilirubin 0.8 0.3 - 1.2 MG/DL [facility] Albumin 4.7 3.5 - 5.0 G/DL [facility] Alk Phosphatase 84 25 - 110 U/L [facility] AST (SGOT) 25 7 - 40 U/L [facility] CO2 24 21 - 30 MMOL/L [facility] ALT (SGPT) 27 7 - 56 U/L [facility] Anion Gap 12 3 - 12 [facility] eGFR Non >60 >60 mL/min [facility] Comment: [place] The eGFR is not validated f or use in drug dosing adjustments. Continue to use estimated creatinine clearance per dosing reference text. Please contact the Clinical Pharmacist for questions. eGFR >60 >60 mL/min [facility] [place] Comment: The eGFR is not validated for use in drug dosing adjustments. Continue to use estimated creatinine clearance per dosing reference text. Please contact the Clinical Pharmacist for questions. Specimen Performing Organization Address City/State/ZIP Code P nav Number MAIN LAB [address] [place] [address] * SALICYLATE LEVEL (02/12/2021 5:11 PM MANAGER SHELL) Salicylate <2.5 2.0 - 29.0 MG/DL [facility] Specimen Blood (substance) Performing Organization Address City/State/ZIP Code P nav Number [facility] [address] [place] [address] * ACETAMINOPHEN LEVEL (02/12/2021 5:11 PM MANAGER SHELL) Acetaminophen <10.0 <20.1 MCG/ML [facility] Specimen Blood (substance) Performing Organization Address City/[facility]/ZIP Code P nav Number [facility] [address] [place] [phone] * ALCOHOL LEVEL (02/12/2021 5:11 PM MANAGER SHELL) Alcohol <10 MG/DL [facility] Specimen Blood (substance) Performing Organization Address City/[facility] Code P nav Number [facility] [address] [place] [phone] * (ABNORMAL) CBC AND DIFF (02/12/2021 5:11 PM MANAGER SHELL) White Blood 9.0 4.5 - 11.0 K/UL [facility] Cells RBC 4.69 4.0 - 5.0 M/UL [facility] Hemoglobin 12.8 12.0 - 15.0 GM/DL [facility] Hematocrit 37.9 36 - 45 % [facility] MCV 80.7 80 - 100 FL [facility] MCH 27.2 26 - 34 PG [facility] MCHC 33.7 32.0 - 36.0 G/DL [facility] RDW 13.8 11 - 15 % [facility] Platelet Count 426 (H) 150 - 400 K/UL [facility] MPV 7.5 7 - 11 FL [facility] Neutrophils 64 41 - 77 % [facility] Lymphocytes 28 24 - 44 % [facility] Monocytes 6 4 - 12 % [facility] Eosinophils 1 0 - 5 % [facility] Basophils 1 0 - 2 % [facility] Absolute 5.86 1.8 - 7.0 K/UL [facility] Neutrophil Count Absolute Lymph 2.53 1.0 - 4.8 K/UL [facility] Count Absolute 0.53 0 - 0.80 K/UL [facility] Monocyte Count Absolute 0.06 0 - 0.45 K/UL [facility] Eosinophil Count Absolute 0.05 0 - 0.20 K/UL [facility] Basophil Count MDW (Monocyte 14.9 <20.7 [facility] Distribution Comment: Width) MDW greater than 20.0, together with other laboratory and clinical information, aids in the diagnosis of sepsis or increased risk of sepsis within the first 12 hours of presenting to the emergency department. MDW should not be used as a sole test to determine the absence of sepsis. Clinical performance of the MDW has not been determined in patients receiving immune stimulants, patients with alcoholism, or patients with hematologic abnormalities such as blast cells. Specimen Blood (substance) Performing Organization Address City/State/ZIP Code P nav Number MAIN LAB [address] [place] [address] * ECG-SCAN (02/12/2021 12:00 AM MANAGER SHELL) Narrative 02/12/2021 12:00 AM MANAGER SHELL Ordered by an unspecified provider. 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 documented in this encounter Administered Medications Action Date Dose Rate Site Medication Order MAR Action 02/12/2021 10:39 PM MANAGER SHELL 1,000 mg acetaminophen (TYLENOL EXTRA STRENGTH) Given tablet 1,000 mg 1,000 mg, Oral, ONCE, 1 dose, On Dahlia 02/12/21 at 1815, TOTAL ACETAMINOPHEN DOSE NOT TO EXCEED 4GM DAILY 02/17/2021 8:26 AM MANAGER SHELL 650 mg acetaminophen (TYLENOL) tablet 650 mg Given 650 mg, Oral, EVERY 6 HOURS PRN, Starting on Tue02/13/21 at 0030, Until Tue02/17/21 at 1438, Pain non-opioid: may be used alone or in combination wit h opioid analgesia, Temp > 38.5 C, TOTAL ACETAMINOPHEN DOSE NOT TO EXCEED 4GM DAILY 650 mg Given 02/16/2021 8:39 PM MANAGER SHELL 650 mg Given 02/13/2021 8:40 AM MANAGER SHELL 650 mg Given 02/13/2021 3:16 AM MANAGER SHELL 02/17/2021 8:03 AM MANAGER SHELL 450 mg buPROPion XL (WELLBUTRIN XL) tablet 450 Given mg 450 mg, Oral, DAILY, First dose on Tue02/13/21 at 1200, Until Discontinued, DO NOT CRUSH 450 mg Given 02/16/2021 8:27 AM MANAGER SHELL 450 mg Given 02/15/2021 8:25 AM MANAGER SHELL 450 mg Given 02/14/2021 8:21 AM MANAGER SHELL 450 mg Given 02/13/2021 11:35 AM MANAGER SHELL calcium carbonate (TUMS) chew tablet 1,000 mg 1,000 mg, Oral, THREE TIMES DAILY PRN, Starting on Tue02/13/21 at 0029, Until Tue02/17/21 at 1438, Indigestion/Heartburn, Each 500 mg tab delivers 200 mg elemental calcium gabapentin (NEURONTIN) capsule 300 mg 300 mg, Oral, EVERY 8 HOURS, 6 doses, First dose on Tue02/18/21 at 2200, Last dose on Tue02/20/21 at 1400 02/17/2021 6:20 AM MANAGER SHELL 600 mg gabapentin (NEURONTIN) capsule 600 mg Given 600 mg, Oral, EVERY 8 HOURS, 6 doses, First dose on Tue02/16/21 at 2200, Last dose on Tue02/18/21 at 1400 600 mg Given 02/16/2021 10:11 PM MANAGER SHELL 02/16/2021 1:31 PM MANAGER SHELL 900 mg gabapentin (NEURONTIN) capsule 900 mg Given 900 mg, Oral, EVERY 8 HOURS, 10 doses, First dose on Tue02/13/21 at 1400, Last dose on Tue02/16/21 at 1400 900 mg Given 02/16/2021 6:34 AM MANAGER SHELL 900 mg Given 02/15/2021 9:06 PM MANAGER SHELL 900 mg Given 02/15/2021 2:21 PM MANAGER SHELL 900 mg Given 02/15/2021 6:34 AM MANAGER SHELL 900 mg Given 02/14/2021 1:31 PM MANAGER SHELL 900 mg Given 02/14/2021 6:45 AM MANAGER SHELL 900 mg Given 02/13/2021 9:59 PM MANAGER SHELL 900 mg Given 02/13/2021 1:53 PM MANAGER SHELL 02/17/2021 11:32 AM MANAGER SHELL 25 mg hydrOXYzine HCL (ATARAX) tablet 25 mg Given 25 mg, Oral, EVERY 6 HOURS PRN, Starting on Tue02/13/21 at 0030, Until Tue02/17/21 at 1438, Anxiety PO 25 mg Given 02/16/2021 9:57 PM MANAGER SHELL 25 mg Given 02/16/2021 2:40 PM MANAGER SHELL 25 mg Given 02/15/2021 2:22 PM MANAGER SHELL 25 mg Given 02/14/2021 1:28 PM MANAGER SHELL 02/16/2021 11:25 AM MANAGER SHELL 800 mg ibuprofen (ADVIL) tablet 800 mg Given 800 mg, Oral, EVERY 12 HOURS PRN, Starting on Tue02/13/21 at 1235, Until Tue02/17/21 at 1438, Pain non-opioid: may be used alone or in combination wit h opioid analgesia, TOTAL IBUPROFEN DOSE NOT TO EXCEED 3.2GM PER DAY 800 mg Given 02/15/2021 2:21 PM MANAGER SHELL 800 mg Given 02/14/2021 8:21 AM MANAGER SHELL 02/16/2021 8:23 PM MANAGER SHELL 25 mg lamoTRIgine (LaMICtal) tablet 25 mg Given 25 mg, Oral, AT BEDTIME DAILY, First dose on Tue02/13/21 at 2100, Until Discontinued 25 mg Given 02/15/2021 9:05 PM MANAGER SHELL 25 mg Given 02/14/2021 10:14 PM MANAGER SHELL 25 mg Given 02/13/2021 9:59 PM MANAGER SHELL 02/17/2021 8:04 AM MANAGER SHELL 1 tablet levonorgestrel-ethinyl estradiol Given (SHIRIN28) tablet 1 tablet 1 tablet, Oral, DAILY, First dose on 02/13/21 at 1400, Until Discontinued 1 tablet Given 02/16/2021 8:28 AM MANAGER SHELL 1 tablet Given 02/15/2021 8:26 AM MANAGER SHELL 1 tablet Given 02/14/2021 8:22 AM MANAGER SHELL 1 tablet Given 02/13/2021 1:54 PM MANAGER SHELL 02/16/2021 8:23 PM MANAGER SHELL 10 mg melatonin (MELATIN) tablet 10 mg Given 10 mg, Oral, AT BEDTIME DAILY, First dose on Tue02/13/21 at 2100, Until Discontinued 10 mg Given 02/15/2021 9:05 PM MANAGER SHELL 10 mg Given 02/14/2021 10:12 PM MANAGER SHELL 10 mg Given 02/13/2021 9:59 PM MANAGER SHELL OLANZapine (ZYPREXA ZYDIS) rapid dissolve tablet 5 mg 5 mg, Oral, EVERY 6 HOURS PRN, Startin g on Tue02/13/21 at 0030, Until Tue02/17/21 at 1438, Agitation PO, Psychosis, Place on tongue and allow to dissolve. OLANZapine (ZyPREXA) injection 5 mg 5 mg, Intramuscular, EVERY 6 HOURS PRN , Starting on Tue02/13/21 at 0030, Until Tue02/17/21 at 1438, Agitation Injectable, Psychosis, Reconstitute 10m g vial with 2.1ml sterile water. Use within 1hr. For IM use only -- Do NOT give IV or SC. IM Olanzapine should NOT be administered within 1 hour of parenteral (IM/IV) benzodiazepines (i.e lorazepam). 02/14/2021 10:55 AM MANAGER SHELL 4 mg ondansetron (ZOFRAN ODT) rapid dissolve Given tablet 4 mg 4 mg, Oral, DAILY PRN, Starting on Tue02/13/21 at 1733, Until Tue02/17/21 at 1438, Nausea/Vomiting PO, Place on tongue and allow to dissolve. 4 mg Given 02/13/2021 5:42 PM MANAGER SHELL polyethylene glycol 3350 (MIRALAX) packet 17 g 17 g (1 packet), Oral, DAILY PRN, Starting on Tue02/13/21 at 0029, Until Tue02/17/21 at 1438, Constipation PO, 8.5 GRAMS = 0.5 PACKET 17 GRAMS = 1 PACKET 34 GRAMS = 2 PACKETS 02/13/2021 1:53 PM MANAGER SHELL 50 mg SUMAtriptan succinate (IMITREX) tablet Given 50 mg 50 mg, Oral, ONCE, 1 dose, On Tue02/13/21 at 1330, Max dose = 200mg/day 02/15/2021 8:27 AM MANAGER SHELL 50 mg SUMAtriptan succinate (IMITREX) tablet Given 50 mg 50 mg, Oral, DAILY PRN, Starting on 02/14/21 at 1030, Until Tue02/17/21 at 1438, migraine, Max dose = 200mg/day If symptoms persist, may repeat dose in 2 hours 50 mg Given 02/14/2021 10:53 AM MANAGER SHELL 02/14/2021 10:12 PM MANAGER SHELL 100 mg traZODone (DESYREL) tablet 100 mg Given 100 mg, Oral, AT BEDTIME PRN, Starting on Tue02/13/21 at 1238, Until Tue02/17/21 at 1438, Insomnia 100 mg Given 02/13/2021 9:59 PM MANAGER SHELL documented in this encounter Discontinued Medications Start Date End Date Medication Sig Discontinue Reason 02/13/2021 buPROPion HCL SR Take 150 mg Removed from (WELLBUTRIN SR) 150 mg by mouth [employer]AKER [employer]IS[employer] Med List tablet daily. 02/16/2021 clonazePAM (KLONOPIN) 1 Take 1 mg by mg tablet mouth three times daily. documented as of this encounter Historical Medications * This list may reflect changes made after this encounter. Start Date End Date Medication Sig Dispensed Refills buPROPion XL (WELLBUTRIN Take 150 mg 0 XL) 150 mg tablet by mouth daily. Do not crush or chew. added in this encounter Active and Recently Administered Medications Times are shown in MANAGER SHELL. 02/16/2021 02/17/2021 Medication Order 02/15/2021 0827 (Given - Provider: Renny Nath RN) 0803 (Given - Provider: Rudolph Robledo RN) buPROPion XL (WELLBUTRIN XL) tablet 450 0825 (Given - mg Provider: Renny Nath, 450 mg, Oral, DAILY, First dose on Tue RN) 02/13/21 at 1200, Until Discontinued, DO NOT CRUSH gabapentin (NEURONTIN) capsule 300 mg(Linked Group 1) 300 mg, Oral, EVERY 8 HOURS, 6 doses, First dose on Tue02/18/21 at 2200, Last dose on Tue02/20/21 at 1400 2211 (Given - Provider: Elvira Daniel RN) 0620 (Given - Provider: Elvira Daniel RN) gabapentin (NEURONTIN) capsule 600 mg(Linked Group 1) 600 mg, Oral, EVERY 8 HOURS, 6 doses, First dose on Tue02/16/21 at 2200, Last dose on Tue02/18/21 at 1400 0634 (Given - Provider: Seb Gonzalez)1331 (Given - Provider: Renny Nath RN) gabapentin (NEURONTIN) capsule 900 mg 0634 (Given - ()(Linked Group 1) Provider: Richy 900 mg, Oral, EVERY 8 HOURS, 10 doses, RHONDA Chandler )1421 First dose on Tue02/13/21 at 1400, Last (Given - Pro vider: dose on Tue02/16/21 at 1400 Renny Nath RN)210 (Given - Provider: Dewayne Guevara RN) 2022 (Given - Provider: Elvira Daniel RN) lamoTRIgine (LaMICtal) tablet 25 mg 2104 (Given - 25 mg, Oral, AT BEDTIME DAILY, First Provider: Brooke crane dose on Tue02/13/21 at 2100, Until RHONDA Guevara) Discontinued 08 (Given - Provider: Renny Nath RN) 08 (Given - Provider: Rudolph Robledo, RHONDA) levonorgestrel-ethinyl estradiol 0826 (Given - (SHIRIN-28) tablet 1 tablet Provider: Renny Nath, 1 tablet, Oral, DAILY, First dose on Tue RN) 02/13/21 at 1400, Until Discontinued 2022 (Given - Provider: Elvira Daniel, RHONDA) melatonin (MELATIN) tablet 10 mg 2104 (Given - 10 mg, Oral, AT BEDTIME DAILY, First Provider: Brooke crane dose on Tue02/13/21 at 2100, Until RHONDA Guevara) Discontinued 02/16/2021 02/17/2021 Medication Order 02/15/20212038 (Given - Provider: Elvira Daniel, RHONDA) 08 (Given - Provider: Rudolph Robledo, RN) acetaminophen (TYLENOL) tablet 650 mg 650 mg, Oral, EVERY 6 HOURS PRN, Starting on Tue02/13/21 at 0030, Until Tue02/17/21 at 1438, Pain non-opioid: may be used alone or in combination wit h opioid analgesia, Temp > 38.5 C, TOTAL ACETAMINOPHEN DOSE NOT TO EXCEED 4GM DAILY calcium carbonate (TUMS) chew tablet 1,000 mg 1,000 mg, Oral, THREE TIMES DAILY PRN, Starting on Tue02/13/21 at 0029, Until Tue02/17/21 at 1438, Indigestion/Heartburn, Each 500 mg tab delivers 200 mg elemental calcium 1440 (Given - Provider: Renny Nath RN)21 57 (Given - Provider: Elvira Daniel RN) 1132 (Given - Provider: Rudolph Robledo, RHONDA) hydrOXYzine HCL (ATARAX) tablet 25 mg 1422 (Given - 25 mg, Oral, EVERY 6 HOURS PRN, Provider: Renny Nath , Starting on Tue02/13/21 at 0030, Until RN) Tue02/17/21 at 1438, Anxiety PO 1125 (Given - Provider: Renny Nath, RHONDA) ibuprofen (ADVIL) tablet 800 mg 1421 (Given - 800 mg, Oral, EVERY 12 HOURS PRN, Provider: Renny juárez, Starting on Tue02/13/21 at 1235, Until RN) Tue02/17/21 at 1438, Pain non-opioid: may be used alone or in combination wit h opioid analgesia, TOTAL IBUPROFEN DOSE NOT TO EXCEED 3.2GM PER DAY LORazepam (ATIVAN) tablet 1 mg 1 mg, Oral, EVERY 4 HOURS PRN, Startin g on Tue02/13/21 at 1322, Until Tue02/17/21 at 1438, Other..., AWAS >/= 6 LORazepam (ATIVAN) tablet 2 mg 2 mg, Oral, EVERY 4 HOURS PRN, Startin g on Tue02/13/21 at 1322, Until Tue02/17/21 at 1438, Other..., AWAS >/= 10 OLANZapine (ZYPREXA ZYDIS) rapid dissolve tablet 5 mg(Linked Group 2) 5 mg, Oral, EVERY 6 HOURS PRN, Startin g on Tue02/13/21 at 0030, Until Tue02/17/21 at 1438, Agitation PO, Psychosis, Place on tongue and allow to dissolve. OLANZapine (ZyPREXA) injection 5 mg(Linked Group 2) 5 mg, Intramuscular, EVERY 6 HOURS PRN , Starting on Tue02/13/21 at 0030, Until Tue02/17/21 at 1438, Agitation Injectable, Psychosis, Reconstitute 10m g vial with 2.1ml sterile water. Use within 1hr. For IM use only -- Do NOT give IV or SC. IM Olanzapine should NOT be administered within 1 hour of parenteral (IM/IV) benzodiazepines (i.e lorazepam). ondansetron (ZOFRAN ODT) rapid dissolve tablet 4 mg 4 mg, Oral, DAILY PRN, Starting on Tue02/13/21 at 1733, Until Tue02/17/21 at 1438, Nausea/Vomiting PO, Place on tongue and allow to dissolve. polyethylene glycol 3350 (MIRALAX) packet 17 g 17 g (1 packet), Oral, DAILY PRN, Starting on Tue02/13/21 at 0029, Until Tue02/17/21 at 1438, Constipation PO, 8.5 GRAMS = 0.5 PACKET 17 GRAMS = 1 PACKET 34 GRAMS = 2 PACKETS SUMAtriptan succinate (IMITREX) tablet 0827 (Given - 50 mg Provider: Renny Portillo, 50 mg, Oral, DAILY PRN, Starting on Sat RN) 02/14/21 at 1030, Until Tue02/17/21 at 1438, migraine, Max dose = 200mg/day If symptoms persist, may repeat dose in 2 hours traZODone (DESYREL) tablet 100 mg 100 mg, Oral, AT BEDTIME PRN, Starting on Tue02/13/21 at 1238, Until Tue02/17/21 at 1438, Insomnia Order Group 1: gabapentin (NEURONTIN) capsule 900 mg ( )Jump to med 900 mg, Oral, EVERY 8 HOURS, 10 doses, First dose on Tue02/13/21 at 1400, Last dose on Tue02/16/21 at 1400 Followed by gabapentin (NEURONTIN) capsule 600 mgJu mp to med 600 mg, Oral, EVERY 8 HOURS, 6 doses, First dose on Tue02/16/21 at 2200, Last dose on Tue02/18/21 at 1400 Followed by gabapentin (NEURONTIN) capsule 300 mgJu mp to med 300 mg, Oral, EVERY 8 HOURS, 6 doses, First dose on Tue02/18/21 at 2200, Last dose on Tue02/20/21 at 1400 Group 2: OLANZapine (ZYPREXA ZYDIS) rapid dissol ve tablet 5 mgJump to med 5 mg, Oral, EVERY 6 HOURS PRN, Startin g on Tue02/13/21 at 0030, Until Tue02/17/21 at 1438, Agitation PO, Psychosis
Place on ton oziel and allow to dissolve.
Or OLANZapine (ZyPREXA) injection 5 mgJump to med 5 mg, Intramuscular, EVERY 6 HOURS PRN , Starting on Tue02/13/21 at 0030, Until Tue02/17/21 at 1438, Agitation Injectable, Psychosis
Ady nstitute 10mg vial with 2.1ml sterile water. Use within 1hr.&n bsp;For IM use only -- Do NOT give IV or SC. IM Olanzapine should NOT be administered w ithin 1 hour of parenteral (IM/IV) benzodiazepines (i.e lorazepam).
documented in this encounter Orders First Ordered Date Medications Ordered That Might Not Have Count Last Ordered Date Been Administered calcium carbonate (TUMS) chew tablet 1 1 04/16/2020 1,000 mg gabapentin (NEURONTIN) capsule 300 mg 1 02/13/2021 LORazepam (ATIVAN) injection 1 mg 2 05/2020 LORazepam (ATIVAN) injection 2 mg 2 05/2020 LORazepam (ATIVAN) tablet 1 mg 1 LORazepam (ATIVAN) tablet 2 mg 1 OLANZapine (ZYPREXA ZYDIS) rapid 1 02/13 dissolve tablet 5 mg OLANZapine (ZyPREXA) injection 5 mg 1 polyethylene glycol 3350 (MIRALAX) 1 05/2020 packet 17 g traZODone (DESYREL) tablet 50 mg 1 02/13 First Ordered Date EKG Orders Without Results Count Last Ordere d Date ECG 12-LEAD 1 02/12/2021 First Ordered Date Diet Count Last Ordered Date DISCHARGE DIET REGULAR 1 02/16/2021 First Ordered Date Nursing Count Last Ordered Date DISCHARGE ACTIVITY NORMAL 1 02/16/2021 DISCHARGE CONTACT 1 02/16/2021 DISCHARGE SIGNS/SYMPTOMS 1 02/16/2021 First Ordered Date Consult Count Last Ordered Date [facility] 02/13/2021 PHYSICIAN First Ordered Date Admission Count Last Ordered Date ADMIT TO INPATIENT 1 02/13/2021 First Ordered Date Discharge Count Last Ordered Date DISCHARGE PATIENT NOW 1 02/16/2021 First Ordered Date Vital Signs Count Last Ordered Date VITAL SIGNS 1 02/13/2021 First Ordered Date Activity Count Last Ordered Date MOBILITY 1 02/13/2021 First Ordered Date Constant Observation Count Last Ordered Date PSYCH OBSERVATION STATUS (PSYCH AREAS 1 02/15/2021 ONLY) documented in this encounter Additional Health Concerns Noted Time Assessment 02/11/2021 1:56 PM MANAGER SHELL PHQ-9 Depression Total Score: 21 02/16/2021 9:00 PM MANAGER SHELL A fall risk assessment has been complet ed for the patient 04/04/2019 3:21 PM MANAGER SHELL A Body Mass Index follow-up plan has be en documented for the patient 02/11/2021 1:56 PM MANAGER SHELL PHQ-2 Depression Total Score: 6 documented as of this encounter Care Teams Start Date End Date Tsa Screener Relationship Specialty 05/25/18 Rashaun Valdez MD PCP - General Family [address] [place] [phone] documented as of this encounter
--- OUTSIDE RECORDS SUMMARY | 2021-04-06 22:28 | XMS REPORT | Encounter Summary ---
Author Author [facility] Address Unknown Phone Unavailable Care Team Providers Care Bloom Conveyor Operator Name Role Phone Rashaun Valdez MD PCP Reason for Visit * Reason Onset Date Comments Follow-up Phone Call 02/18/2021 Encounter Details Care Team Description Date Type Department Michelle Sweet RN Follow-up Phone Call 02/18/2021 Telephone Behavioral Health: Carroll Stevenson [address] [place] [address] Social History Date Tobacco Use Types Packs/Day Years Used Never Smoker Smokeless Tobacco: Never Used Comments Alcohol Use Standard Drinks/Week Not Currently 0 (1 standard drink = 0.6 o z pure alcohol) Sex Assigned at Date Recorded Female 03/10/2020 4:08 PM SET UP TECHNICIAN Date Recorded COVID-19 Exposure Response 02/12/2021 9:52 PM SET UP TECHNICIAN In the last month, have you been in contact with No / Unsure someone who was confirmed or suspected to have Coronavirus / COVID-19? documented as of this encounter Functional Status Date of Assessment Functional Status Response 02/13/2021 Does the patient have a hearing impairment: No documented as of this encounter Plan of Treatment Not on filedocumented as of this encounter Goals Goal Patient Associated Recent Progress Patient-Stat Aut hor Goal Type Problems ed? Complete 1 Mindfulness Lifestyle On track (02/13/2021 Yes Lara, Activity Each Day 4:11 AM SET UP TECHNICIAN) RHONDA Solo Note: "I need to get a more positive out look on life and to let my daughter see me more happy than I am sad." " Migraines make me depressed and hard to do anything." TBI in 1993 documented as of this encounter Visit Diagnoses Not on filedocumented in this encounter Additional Health Concerns Noted Time Assessment 02/11/2021 1:56 PM SET UP TECHNICIAN PHQ-9 Depression Total Score: 21 02/16/2021 9:00 PM SET UP TECHNICIAN A fall risk assessment has been complet ed for the patient 04/04/2019 3:21 PM SET UP TECHNICIAN A Body Mass Index follow-up plan has be en documented for the patient 02/11/2021 1:56 PM SET UP TECHNICIAN PHQ-2 Depression Total Score: 6 documented as of this encounter Care Teams Start Date End Date Bloom Conveyor Operator Relationship Specialty 05/25/18 Rashaun Valdez MD PCP - General [address] [address] documented as of this encounter
--- OUTSIDE RECORDS SUMMARY | 2021-04-06 22:28 | XMS REPORT | Clinical Summary ---
Author Author [facility] Organization [facility] Address Unknown Phone Unavailable Care Team Providers Care Upholstery Cleaner Name Role Phone Rashaun Valdez MD PCP Source Comments Some departments are not documenting in the electronic medical record. If you d o not see the information that you expected, contact Release of Information in [facility] blabfeed Information Management department at [phone] for further assistan ce in locating additional records.[facility] Allergies No known active allergies Medications End Date Status Medication Sig Dispensed Refills Start Date Active MELATONIN PO Take by 0 mouth at bedtime as needed. Active norgestimate/ethinyl Take 1 tablet 0 estradiol(+) by mouth (ORTHO-CYCLEN (28); daily. SPRINTEC (28); MONONESSA (28); PREVIFEM) tablet Active ibuprofen (MOTRIN) 800 mg Take 800 mg 0 tablet by mouth every 12 hours as needed for Pain. Take with food. Active buPROPion XL (WELLBUTRIN Take 300 mg 0 XL) 300 mg tablet by mouth every morning. Do not crush or chew. Active ubrogepant (UBRELVY) 100 Take one 10 tablet 3 1 mg tabletIndications: tablet by 1 migraine mouth daily as needed. May repeat once after 2 hours based on response. Indications: a migraine headache Active eszopiclone (LUNESTA) 3 Take 3 mg by 0 mg tablet mouth at bedtime as needed for Sleep. Active buPROPion XL (WELLBUTRIN Take 150 mg 0 XL) 150 mg tablet by mouth daily. Do not crush or chew. Active lamoTRIgine (LAMICTAL) 25 Take one 30 tablet 0 mg tablet tablet by 1 mouth at bedtime daily. Active hydrOXYzine HCL (ATARAX) Take one 30 tablet 0 1 25 mg tabletIndications: tablet by 1 anxiety mouth every 6 hours as needed. 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 Encounters Care Team Description Date Type Specialty Torito Owens MD 04/01/2021 Refill Neurology Blas Evans, RHONDA Follow-up Phone Call 02/20/2021 Telephone Psychiatry Sandhya Mills Follow-up Phone Call 02/20/2021 Telephone Psychiatry Michelle Sweet RN Follow-up Phone Call 02/18/2021 Telephone Psychiatry David Amaya MD Glenn, Christine R, Sandhya Kelley, 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 02/12/2021 Hospital Psychiatry - Encounter 02/17/2021 02/12/2021 Travel Torito Owens MD Chronic migraine w/o aura w/o status connor rainosus, not intractable 02/11/2021 Procedure visit Neurology 02/11/2021 Travel Torito Owens MD Prior Authorization (Ubrelvy 100mg) 01/22/2021 Telephone Neurology Torito Owens MD 01/14/2021 Refill Neurology from Last 3 Months Surgical History Surgery Date Site/Laterality Comments COLONOSCOPY BUNIONECTOMY Bilateral CERVICAL PLEXUS BLOCK 12/12/2012 SECTION 12/06/2014 Medical History Medical History Date Comments Headache Kidney stone Neck pain Migraines Impingement syndrome of shoulder Depression Anxiety Family History Medical History Relation Name Comments Cancer Father leukemia and skin Diabetes Father Heart Disease Father Hypertension Father Neurological Problem Mother Myasthenia gravis Migraines Sister Relation Name Status Comments Father Alive Maternal Grandfather Maternal Grandmother Mother Alive Paternal Grandfather Alive Paternal Grandmother Alive Sister Social History Date Tobacco Use Types Packs/Day Years Used Never Smoker Smokeless Tobacco: Never Used Tobacco Cessation: Counseling Given: No Comments Alcohol Use Standard Drinks/Week Not Currently 0 (1 standard drink = 0.6 o z pure alcohol) Sex Assigned at Date Recorded Female 03/10/2020 4:08 PM LIP CUTTER AND SCORER Last Filed Vital Signs Reading Time Taken Comments Vital Sign 109/76 02/17/2021 11:00 AM LIP CUTTER AND SCORER Blood Pressure 90 02/17/2021 11:00 AM LIP CUTTER AND SCORER Pulse 36.6 C (97.8 F) 02/17/2021 11:00 AM LIP CUTTER AND SCORER Temperature - - Respiratory Rate 98% 02/17/2021 11:00 AM LIP CUTTER AND SCORER Oxygen Saturation - - Inhaled Oxygen Concentration 81.8 kg (180 lb 6.4 oz) 02/13/2021 2:23 AM LIP CUTTER AND SCORER Weight 162.6 cm (5' 4") 02/13/2021 2:23 AM LIP CUTTER AND SCORER Height 30.97 02/13/2021 2:23 AM LIP CUTTER AND SCORER Body Mass Index Plan of Treatment Health Maintenance Due Date Last Done Comments HIV SCREENING 2003 DTAP/TDAP VACCINES (1 - 2006 Tdap) HEPATITIS C SCREENING 2006 PHYSICAL (COMPREHENSIVE) 2006 EXAM CERVICAL CANCER SCREENING 2009 INFLUENZA VACCINE 10/12/2020 03/10/2020 Goals Goal Patient Associated Recent Progress Patient-Stat Aut hor Goal Type Problems ed? Complete 1 Mindfulness Lifestyle On track (02/13/2021 Yes Lara, Activity Each Day 4:11 AM LIP CUTTER AND SCORER) RHONDA Solo Note: "I need to get a more positive out look on life and to let my daughter see me more happy than I am sad." " Migraines make me depressed and hard to do anything." TBI in 1994 Procedures Comments Procedure Name Priority Date/Time Associated Diag nosis COVID-19 (SARS-COV-2) PCR STAT 02/12/2021 10:16 PM LIP CUTTER AND SCORER UA REFLEX LABEL STAT 02/12/2021 6:24 PM LIP CUTTER AND SCORER URINALYSIS MICROSCOPIC STAT 02/12/2021 REFLEX TO CULTURE 6:24 PM LIP CUTTER AND SCORER HC URINALYSIS UAR STAT 02/12/2021 6:24 PM LIP CUTTER AND SCORER HC OPIATES 300, PTUDS STAT 02/12/2021 6:24 PM LIP CUTTER AND SCORER HC OXYCODONE URINE SCREEN STAT 02/12/2021 6:24 PM LIP CUTTER AND SCORER HC METHADONE URINE SCREEN STAT 02/12/2021 6:24 PM LIP CUTTER AND SCORER HC PHENCYCLIDINES; QUAL STAT 02/12/2021 6:24 PM LIP CUTTER AND SCORER HC COCAINE; QUAL STAT 02/12/2021 6:24 PM LIP CUTTER AND SCORER HC CANNABINOIDS; QUAL STAT 02/12/2021 6:24 PM LIP CUTTER AND SCORER HC BENZODIAZEPINES, QUAL STAT 02/12/2021 6:24 PM LIP CUTTER AND SCORER HC BARBITURATES STAT 02/12/2021 6:24 PM LIP CUTTER AND SCORER HC AMPHETAMINES QUAL, STAT 02/12/2021 URINE 6:24 PM LIP CUTTER AND SCORER HC TSH SCREEN STAT 02/12/2021 5:11 PM LIP CUTTER AND SCORER HC COMPREHENSIVE STAT 02/12/2021 METABOLIC PANEL 5:11 PM LIP CUTTER AND SCORER HC SALICYLATE STAT 02/12/2021 5:11 PM LIP CUTTER AND SCORER HC ACETAMINOPHEN(TYLENOL) STAT 02/12/2021 5:11 PM LIP CUTTER AND SCORER HC ALCOHOL STAT 02/12/2021 5:11 PM LIP CUTTER AND SCORER HC CBC W/ AUTOMATED DIFF STAT 02/12/2021 5:11 PM LIP CUTTER AND SCORER ECG 12-LEAD STAT 02/12/2021 4:21 PM LIP CUTTER AND SCORER ECG-SCAN 02/12/2021 12:00 AM LIP CUTTER AND SCORER DE CHEMODERVATE Routine 02/11/2021 Chronic migrai ne FACIAL/TRIGEM/CERV MUSC 2:30 PM LIP CUTTER AND SCORER MIGRAINE from Last 3 Months Results * COVID-19 (SARS-COV-2) PCR (02/12/2021 10:16 PM LIP CUTTER AND SCORER) Pathologist [facility] COVID-19 FLOCKED SWAB [facility] (SARS-CoV-2) NASOPHARYNGEAL PCR Source COVID-19 NOT DETECTED DN-NOT DETECTED [facility] (SARS-CoV-2) Comment: PCR This assay is designed [...] performance characteristics have been verified by the [facility]. Fact sheet for providers: https://www.fda.gov/media/1362 85/download Fact sheet for patients: https://www.fda.gov/media/1360 87/download Specimen Flocked Swab - Nasopharyngeal structure (body structure) Performing Organization Address City/[facility]/ZIP Code P nav Number [facility] [address] [place] [address] * UA REFLEX LABEL (02/12/2021 6:24 PM LIP CUTTER AND SCORER) Pathologist [facility] Reflex Criteria for reflex to culture [facility] Culture are WBC>10, Positive Nitrit e, and/or >=+1 leukocytes. If quantity is not sufficient, an addendum will follow. Specimen Urine specimen (specimen) Performing Organization Address [facility] P nav Number [facility] [address] [place] [address] * URINALYSIS MICROSCOPIC REFLEX TO CULTURE (02/12/2021 6:24 PM LIP CUTTER AND SCORER) Pathologist [facility] WBCs,UA 2-10 0 - 2 /HPF [facility] RBCs,UA 0-2 0 - 3 /HPF [facility] Comment,UA Criteria for reflex to culture [facility] are WBC>10, Positive Nitrite, and/or >=+1 leukocytes. If quantity is not sufficient, an addendum will follow. MucousUA TRACE [facility] Squamous 5-10 0 - 5 [facility] Epithelial Cells Specimen Urine specimen (specimen) Performing Organization Address [facility] P nav Number [facility] [address] [place] [address] * (ABNORMAL) URINALYSIS DIPSTICK REFLEX TO CULTURE (02/12/2021 6:24 PM LIP CUTTER AND SCORER) Color,UA YELLOW [facility] Turbidity,UA 1+ (A) CLEAR-CLEAR [facility] Specific 1.017Comment: NOTE NEW 1.005 - 1.030 [facility] [place]-Urine REFERENCE RANGES pH,UA 5.0 5.0 - 8.0 [...] Specimen Urine specimen (specimen) Performing Organization Address [facility] P nav Number [facility] [address] [place] [address] * OPIATES 300 OR GREATER-URINE RANDOM (02/12/2021 6:24 PM LIP CUTTER AND SCORER) Opiates 300 NEG NEG-NEG [facility] Comment: RESULTS WERE OBTAINED BY IMMUNOASSAY AND ARE PRESUMPTIVE ONLY. POSITIVE INDICATES THE PRESENCE OF SUBSTANCE WITH CHARACTERISTICS SIMILAR TO DRUG-DRUG CLASS OR METABOLITE IN CONC. EQUAL TO OR EXCEEDING VALUES LISTED. OPIATES 300 NG/ML Specimen Urine specimen (specimen) Performing Organization Address [facility] P nav Number [facility] [address] [place] [address] * METHADONE-URINE SCREEN (02/12/2021 6:24 PM LIP CUTTER AND SCORER) Methadone NEG NEG-NEG [facility] Comment: RESULTS WERE OBTAINED BY IMMUNOASSAY AND ARE PRESUMPTIVE ONLY. POSITIVE INDICATES THE PRESENCE OF SUBSTANCE WITH CHARACTERISTICS SIMILAR TO DRUG-DRUG CLASS OR METABOLITE IN CONC. EQUAL TO OR EXCEEDING VALUES LISTED. METHADONE 300 NG/ML Specimen Urine specimen (specimen) Performing Organization Address [facility]/State/ZIP Code P nav Number [facility] [address] [place] [address] * PHENCYCLIDINES-URINE RANDOM (02/12/2021 6:24 PM LIP CUTTER AND SCORER) Phencyclidine NEG NEG-NEG [facility] (PCP) Comment: RESULTS WERE OBTAINED BY IMMUNOASSAY AND ARE PRESUMPTIVE ONLY. POSITIVE INDICATES THE PRESENCE OF SUBSTANCE WITH CHARACTERISTICS SIMILAR TO DRUG-DRUG CLASS OR METABOLITE IN CONC. EQUAL TO OR EXCEEDING VALUES LISTED. PHENCYCLIDINE (PCP) 25 NG/ML Specimen Urine - Urine specimen (specimen) Performing Organization Address City/[facility] Code P nav Number [facility] [address] [place] [address] * OXYCODONE URINE SCREEN (02/12/2021 6:24 PM LIP CUTTER AND SCORER) Oxycodone, NEG NEG-NEG [facility] Urine Comment: RESULTS WERE OBTAINED BY IMMUNOASSAY AND ARE PRESUMPTIVE ONLY. POSITIVE INDICATES THE PRESENCE OF SUBSTANCE WITH CHARACTERISTICS SIMILAR TO DRUG-DRUG CLASS OR METABOLITE IN CONC. EQUAL TO OR EXCEEDING VALUES LISTED. OXYCODONE 300 NG/ML Specimen Urine - Urine specimen (specimen) Performing Organization Address [facility] P nav Number [facility] [address] [place] [address] * COCAINE-URINE RANDOM (02/12/2021 6:24 PM LIP CUTTER AND SCORER) Cocaine-Urine NEG NEG-NEG [facility] Comment: RESULTS WERE OBTAINED BY IMMUNOASSAY AND ARE PRESUMPTIVE ONLY. POSITIVE INDICATES THE PRESENCE OF SUBSTANCE WITH CHARACTERISTICS SIMILAR TO DRUG-DRUG CLASS OR METABOLITE IN CONC. EQUAL TO OR EXCEEDING VALUES LISTED. COCAINE 300 NG/ML Specimen Urine - Urine specimen (specimen) Performing Organization Address [facility] Code P nav Number [facility] [address] [place] [address] * CANNABINOIDS-URINE RANDOM (02/12/2021 6:24 PM LIP CUTTER AND SCORER) THC NEG NEG-NEG [facility] Comment: RESULTS WERE OBTAINED BY IMMUNOASSAY AND ARE PRESUMPTIVE ONLY. POSITIVE INDICATES THE PRESENCE OF SUBSTANCE WITH CHARACTERISTICS SIMILAR TO DRUG-DRUG CLASS OR METABOLITE IN CONC. EQUAL TO OR EXCEEDING VALUES LISTED. CANNABINOIDS 50 NG/ML Specimen Urine - Urine specimen (specimen) Performing Organization Address [facility] P nav Number [facility] [address] [place] [phone] * (ABNORMAL) BENZODIAZEPINES-URINE RANDOM (02/12/2021 6:24 PM LIP CUTTER AND SCORER) Benzodiazepines POS (A) NEG-NEG [facility] Comment: RESULTS WERE OBTAINED BY IMMUNOASSAY AND ARE PRESUMPTIVE ONLY. POSITIVE INDICATES THE PRESENCE OF SUBSTANCE WITH CHARACTERISTICS SIMILAR TO DRUG-DRUG CLASS OR METABOLITE IN CONC. EQUAL TO OR EXCEEDING VALUES LISTED. BENZODIAZEPINES 200 NG/ML Specimen Urine - Urine specimen (specimen) Performing Organization Address [facility] P nav Number [facility] [address] [place] [address] * BARBITURATES-URINE RANDOM (02/12/2021 6:24 PM LIP CUTTER AND SCORER) Barbiturates,Ur NEG NEG-NEG [facility] ine Comment: RESULTS WERE OBTAINED BY IMMUNOASSAY AND ARE PRESUMPTIVE ONLY. POSITIVE INDICATES THE PRESENCE OF SUBSTANCE WITH CHARACTERISTICS SIMILAR TO DRUG-DRUG CLASS OR METABOLITE IN CONC. EQUAL TO OR EXCEEDING VALUES LISTED. BARBITURATES 200 NG/ML Specimen Urine - Urine specimen (specimen) Performing Organization Address [facility] P nav Number [facility] [address] [place] [address] * AMPHETAMINES-URINE RANDOM (02/12/2021 6:24 PM LIP CUTTER AND SCORER) Amphetamines NEG NEG-NEG [facility] Comment: RESULTS WERE OBTAINED BY IMMUNOASSAY AND ARE PRESUMPTIVE ONLY. POSITIVE INDICATES THE PRESENCE OF SUBSTANCE WITH CHARACTERISTICS SIMILAR TO DRUG-DRUG CLASS OR METABOLITE IN CONC. EQUAL TO OR EXCEEDING VALUES LISTED. AMPHETAMINES 1000 NG/ML Specimen Urine - Urine specimen (specimen) Performing Organization Address [facility] Code P nav Number [facility] [address] [place] [address] * TSH WITH FREE T4 REFLEX (02/12/2021 5:11 PM LIP CUTTER AND SCORER) TSH 1.72 0.35 - 5.00 MCU/ML [facility] Specimen Performing Organization Address [facility] P nav Number [facility] [address] [place] [address] * (ABNORMAL) CBC AND DIFF (02/12/2021 5:11 PM LIP CUTTER AND SCORER) White Blood 9.0 4.5 - 11.0 K/UL [...] P nav Number [facility] [address] [place] [address] * ALCOHOL LEVEL (02/12/2021 5:11 PM LIP CUTTER AND SCORER) Alcohol <10 MG/DL [facility] Specimen Blood (substance) Performing Organization Address City/[facility]/ZIP Code P nav Number [facility] [address] [place] [address] * ACETAMINOPHEN LEVEL (02/12/2021 5:11 PM LIP CUTTER AND SCORER) Acetaminophen <10.0 <20.1 MCG/ML [facility] Specimen Blood (substance) Performing Organization Address City/[facility]/ZIP Code P nav Number [facility] [address] [place] [address] * SALICYLATE LEVEL (02/12/2021 5:11 PM LIP CUTTER AND SCORER) Salicylate <2.5 2.0 - 29.0 MG/DL [facility] Specimen Blood (substance) Performing Organization Address [facility] P nav Number [facility] [address] [place] [address] * (ABNORMAL) COMPREHENSIVE METABOLIC PANEL (02/12/2021 5:11 PM LIP CUTTER AND SCORER) Sodium 141 137 - 147 MMOL/L [facility] [...] >60 >60 mL/min [facility] Comment: [place] The eGFR is not validated f or use in drug dosing adjustments. Continue to use estimated creatinine clearance per dosing reference text. Please contact the Clinical Pharmacist for questions. eGFR >60 >60 mL/min [facility] [place] Comment: The eGFR is not validated for use in drug dosing adjustments. Continue to use estimated creatinine clearance per dosing reference text. Please contact the Clinical Pharmacist for questions. Specimen Performing Organization Address [facility]/ZIP Code P nav Number [facility] [address] [place] [address] * ECG-SCAN (02/12/2021 12:00 AM LIP CUTTER AND SCORER) Narrative 02/12/2021 12:00 AM LIP CUTTER AND SCORER Ordered by an unspecified provider. * DE CHEMODERVATE FACIAL/TRIGEM/CERV MUSC MIGRAINE (02/11/2021 2:30 PM LIP CUTTER AND SCORER) Narrative IN CLINIC - 02/11/2021 2:30 PM LIP CUTTER AND SCORER Torito Owens MD 02/11/2021 2:51 PM Subjective: Selena Mortensen 30 y.o. female is here today for botox for chronic migraines. PRIOR TO BOTOX: Previously she noted daily headaches with up to 10/10 pain for greater than 5 years. T here is a right greater than left frontal to the base of the neck with throbbing, dull aching, tightness, associated with nausea, vomiting, photophobia, phonophobia. Currently: reports 9 migraines per month. She is apparently having fevers up to 101 nearly daily for months. They are having her see rheumatology for further work up. Will stop flexeril and sumatriptan due to her symptoms in relation of increasing her wellbutrin dose. She feels depression and anxiety are worse. She called suicide hotline and then her doctor who talked to her by phone and told her to use the techniques she had learned. Discussed today. She denies SI today, no plan today. She declined intervention today, but she was willing to take resources. Any chance you are or trying to become ? No. Do you understand the risks and benefits of botox for migraine and wish to proceed? Yes Vitals: 02/11/21 1357 BP: 128/82 BP Source: Arm, Left Upper Patient Position: Sitting Pulse: 85 SpO2: 100% Weight: 83.7 kg (184 lb 8 oz) Height: 165.1 cm (65") PainSc: Two Botox Injection Procedure Previous Injection Date: 11/19/2020 Informed consent given verbally to the patient today to include, but not limited to: Most common side effects: neck pain, headache, eyelid ptosis, migraine, muscular weakness, musculoskeletal stiffness, bronchitis, injection-site pain, musculoskeletal pain, myalgia, facial paresis, hypertension, and muscle spasms; infection at injections sites, bruising, bleeding Most serious side effects/risks: anaphylaxis, dysphagia, pneumonia, arrhythmia, myocardial infarction, and in some cases, spontaneous Confirmed: patient, procedure, side, site, safety procedures followed. Performed by: Torito Owens MD. Preparation: no contraindications noted to Botox, possible medications prior to procedure Emla cream 2.5%/2.5% - 2g topically prior to procedure, Tylenol, Preparation of site with alcohol Procedure performed: Indication: Chronic Migraine Headaches Medication: Onabotulinum toxin A 2.5 ml/100 units (Botulinum Toxin 5 units per 0.1mL, 200 units prepared, 155 units used, 45 units of waste) Location: PREEMPT protocol (Kassy , and coauthors. Cephalalgia, 2010;30:793) Muscles/Sites Injected A - Bilateral Supervisor Shipping Room - 10 units divided in 2 sites B - Midline Procerus - 5 units in 1 site C - Bilateral Frontalis - 20 units divided in 4 sites D - Bilateral Temporalis - 40 units divided in 8 sites E - Bilateral Occipitalis - 30 units divided in 6 sites F - Bilateral Cervical Paraspinals - 20 units divided in 4 sites G - Bilateral Trapezius - 30 units divided in 6 sites Total Dose - 155 Units divided in 31 sites Lot/Expiration: [id number], 04/2023- both vials Procedure tolerated: well. Complications: none. Diagnosis Chronic Migraine Headaches Course: Progressing as expected. Counseled: Patient/Family, Regarding diagnosis, Regarding treatment, Regarding medications. If any serious side effects occur, the patient has been instructed to go to the nearest emergency room and call our office. Follow up: as scheduled - call with any concerns Performing Organization Address City/State/ZIP Code P nav Number IN CLINIC from Last 3 Months Insurance Type Payer Benefit Subscriber ID Effective Phone Address Plan / Dates Group [employer] MEDICAID AETNA [id number] 2018-P [phone] [facility] [id number] [place] [phone] Advance Directives Patient Conference Center Coordinator Explanation Type Date Recorded Advance 02/12/2021 2:58 PM Directive/DPOA Date Inactivated Comments Code Status Date Activated 02/17/2021 2:43 PM Full Code 02/13/2021 3:38 AM Provider has discussed Code Status No, more discussi on w/Patient or Family? needed Care Teams Start Date End Date Upholstery Cleaner Relationship Specialty 05/25/18 Rashaun Valdez MD PCP - General [address] [phone]
--- OUTSIDE RECORDS SUMMARY | 2021-04-06 22:28 | XMS REPORT | Encounter Summary ---
Author Author [facility] Organization [facility] Address Unknown Phone Unavailable Care Team Providers Care Lease Purchase Driver Name Role Phone Rashaun Valdez MD PCP Reason for Visit * Reason Comments Medication Refill Encounter Details Care Team Description Date [place] [address] [facility] [address] [place] [address] 04/01/2021 Refill Neurology: [facility] [address] [place] [address] Social History Date Tobacco Use Types Packs/Day Years Used Never Smoker Smokeless Tobacco: Never Used Comments Alcohol Use Standard Drinks/Week Not Currently 0 (1 standard drink = 0.6 o z pure alcohol) Sex Assigned at Date Recorded Female 03/10/2020 4:08 PM BELT DRESSER documented as of this encounter Functional Status Date of Assessment Functional Status Response 02/13/2021 Does the patient have a hearing impairment: No documented as of this encounter Ordered Prescriptions Start Date End Date Prescription Sig Dispensed Refills 04/01/2021 ondansetron (ZOFRAN ODT) PLACE ONE (1) 15 tablet 0 4 mg rapid dissolve TABLET ON tablet TONGUE AND ALLOW TO DISSOLVE EVERY 8 HOURS NEEDED FOR NAUSEA OR VOMITING documented in this encounter Plan of Treatment Not on filedocumented as of this encounter Goals Goal Patient Associated Recent Progress Patient-Stat Aut hor Goal Type Problems ed? Complete 1 Mindfulness Lifestyle On track (02/13/2021 Yes Lara, Activity Each Day 4:11 AM BELT DRESSER) RHONDA Solo Note: "I need to get a more positive out look on life and to let my daughter see me more happy than I am sad." " Migraines make me depressed and hard to do anything." TBI in 1993 documented as of this encounter Visit Diagnoses Not on filedocumented in this encounter Discontinued Medications Start Date End Date Medication Sig Discontinue Reason 12/31/2020 04/01/2021 ondansetron (ZOFRAN ODT) PLACE ONE 4 mg rapid dissolve (1) TABLET tablet ON TONGUE AND ALLOW TO DISSOLVE EVERY 8 HOURS NEEDED FOR NAUSEA OR VOMITING documented as of this encounter Additional Health Concerns Noted Time Assessment 02/11/2021 1:56 PM BELT DRESSER PHQ-9 Depression Total Score: 21 02/16/2021 9:00 PM BELT DRESSER A fall risk assessment has been complet ed for the patient 04/04/2019 3:21 PM BELT DRESSER A Body Mass Index follow-up plan has be en documented for the patient 02/11/2021 1:56 PM BELT DRESSER PHQ-2 Depression Total Score: 6 documented as of this encounter Care Teams Start Date End Date Lease Purchase Driver Relationship Specialty 05/25/18 Rashaun Valdez MD PCP - General [address] [phone] documented as of this encounter
--- OUTSIDE RECORDS SUMMARY | 2021-04-06 22:28 | XMS REPORT | Encounter Summary ---
Author Author [facility] Organization [facility] Address Unknown Phone Unavailable Care Team Providers Care Finisher Hand Name Role Phone Rashaun Valdez MD PCP Reason for Visit * Reason Onset Date Comments Follow-up Phone Call 02/20/2021 Encounter Details Care Team Description Date Type Department Sandhya Mills Follow-up Phone Call 02/20/2021 Telephone Behavioral Health: [place] [address] [place] [address] Social History Date Tobacco Use Types Packs/Day Years Used Never Smoker Smokeless Tobacco: Never Used Comments Alcohol Use Standard Drinks/Week Not Currently 0 (1 standard drink = 0.6 o z pure alcohol) Sex Assigned at Date Recorded Female 03/10/2020 4:08 PM DOWEL SANDER OPERATOR Date Recorded COVID-19 Exposure Response 02/12/2021 9:52 PM DOWEL SANDER OPERATOR In the last month, have you been in contact with No / Unsure someone who was confirmed or suspected to have Coronavirus / COVID-19? documented as of this encounter Functional Status Date of Assessment Functional Status Response 02/13/2021 Does the patient have a hearing impairment: No documented as of this encounter Miscellaneous Notes * Telephone Encounter - Sandhya Mills - 02/20/2021 8:53 AM DOWEL SANDER OPERATOR Second attempt at follow up phone call. No answer - no identifiers on voicemail, no message left. L SANDER OPERATOR documented in this encounter Plan of Treatment Not on filedocumented as of this encounter Goals Goal Patient Associated Recent Progress Patient-Stat Aut hor Goal Type Problems ed? Complete 1 Mindfulness Lifestyle On track (02/13/2021 Yes Lara, Activity Each Day 4:11 AM DOWEL SANDER OPERATOR) RHONDA Solo Note: "I need to get a more positive out look on life and to let my daughter see me more happy than I am sad." " Migraines make me depressed and hard to do anything." TBI in 1993 documented as of this encounter Visit Diagnoses Not on filedocumented in this encounter Additional Health Concerns Noted Time Assessment 02/11/2021 1:56 PM DOWEL SANDER OPERATOR PHQ-9 Depression Total Score: 21 02/16/2021 9:00 PM DOWEL SANDER OPERATOR A fall risk assessment has been complet ed for the patient 04/04/2019 3:21 PM DOWEL SANDER OPERATOR A Body Mass Index follow-up plan has be en documented for the patient 02/11/2021 1:56 PM DOWEL SANDER OPERATOR PHQ-2 Depression Total Score: 6 documented as of this encounter Care Teams Start Date End Date Finisher Hand Relationship Specialty 05/25/18 Rashaun Valdez MD PCP - General [address] [phone] documented as of this encounter
--- OUTSIDE RECORDS SUMMARY | 2021-04-06 22:28 | XMS REPORT | Encounter Summary ---
Author Author [facility] Organization [facility] Address Unknown Phone Unavailable Care Team Providers Care Compounder Helper Name Role Phone Rashaun Valdez MD PCP Reason for Visit * Reason Onset Date Comments Follow-up Phone Call 02/20/2021 Encounter Details Care Team Description Date Type Department Blas Evans RN Follow-up Phone Call 02/20/2021 Telephone Behavioral Health: [place] [address] [place] [address] Social History Date Tobacco Use Types Packs/Day Years Used Never Smoker Smokeless Tobacco: Never Used Comments Alcohol Use Standard Drinks/Week Not Currently 0 (1 standard drink = 0.6 o z pure alcohol) Sex Assigned at Date Recorded Female 03/10/2020 4:08 PM PLANT ATTENDANT Date Recorded COVID-19 Exposure Response 02/12/2021 9:52 PM PLANT ATTENDANT In the last month, have you been in contact with No / Unsure someone who was confirmed or suspected to have Coronavirus / COVID-19? documented as of this encounter Functional Status Date of Assessment Functional Status Response 02/13/2021 Does the patient have a hearing impairment: No documented as of this encounter Miscellaneous Notes * Telephone Encounter - Blas Evans RN - 02/20/2021 3:55 PM PLANT ATTENDANT Confirmation this is the pt the call is intended for (name/): yes Any questions about DC instructions? NO Did you have any difficulty filling Rx's? NO Any questions about follow-up appointments? NO Name of caser shoe parts to follow up with: Did you receive all items at discharge that you came in with?: Yes Any other questions/comments: None T ATTENDANT documented in this encounter Plan of Treatment Not on filedocumented as of this encounter Goals Goal Patient Associated Recent Progress Patient-Stat Aut hor Goal Type Problems ed? Complete 1 Mindfulness Lifestyle On track (02/13/2021 Yes Lara, Activity Each Day 4:11 AM PLANT ATTENDANT) RHONDA Solo Note: "I need to get a more positive out look on life and to let my daughter see me more happy than I am sad." " Migraines make me depressed and hard to do anything." TBI in 1993 documented as of this encounter Visit Diagnoses Not on filedocumented in this encounter Additional Health Concerns Noted Time Assessment 02/11/2021 1:56 PM PLANT ATTENDANT PHQ-9 Depression Total Score: 21 02/16/2021 9:00 PM PLANT ATTENDANT A fall risk assessment has been complet ed for the patient 04/04/2019 3:21 PM PLANT ATTENDANT A Body Mass Index follow-up plan has be en documented for the patient 02/11/2021 1:56 PM PLANT ATTENDANT PHQ-2 Depression Total Score: 6 documented as of this encounter Care Teams Start Date End Date Compounder Helper Relationship Specialty 05/25/18 Rashaun Valdez MD PCP - General [address] [phone] documented as of this encounter
--- OUTSIDE RECORDS SUMMARY | 2021-04-06 22:29 | XMS REPORT | Encounter Summary ---
Author Author [facility] Organization [facility] Address Unknown Phone Unavailable Care Team Providers Care Production Support Specialist Name Role Phone Rashaun Valdez MD PCP Encounter Details Care Team Description Date Type Department 02/11/2021 Travel Social History Date Tobacco Use Types Packs/Day Years Used Never Smoker Smokeless Tobacco: Never Used Comments Alcohol Use Standard Drinks/Week Not Currently 0 (1 standard drink = 0.6 o z pure alcohol) Sex Assigned at Date Recorded Female 03/10/2020 4:08 PM OVERLOCK OPERATOR Date Recorded COVID-19 Exposure Response 02/11/2021 1:48 PM OVERLOCK OPERATOR In the last month, have you been in contact with No / Unsure someone who was confirmed or suspected to have Coronavirus / COVID-19? documented as of this encounter Plan of Treatment Not on filedocumented as of this encounter Visit Diagnoses Not on filedocumented in this encounter Additional Health Concerns Noted Time Assessment 02/11/2021 1:56 PM OVERLOCK OPERATOR PHQ-9 Depression Total Score: 21 02/11/2021 1:57 PM OVERLOCK OPERATOR A fall risk assessment has been complet ed for the patient 04/04/2019 3:21 PM OVERLOCK OPERATOR A Body Mass Index follow-up plan has be en documented for the patient 02/11/2021 1:56 PM OVERLOCK OPERATOR PHQ-2 Depression Total Score: 6 documented as of this encounter Care Teams Start Date End Date Production Support Specialist Relationship Specialty 05/25/18 Rashaun Valdez MD PCP - General [address] [phone] documented as of this encounter
--- OUTSIDE RECORDS SUMMARY | 2021-04-06 22:29 | XMS REPORT | Encounter Summary ---
Author Author [facility] Address Unknown Phone Unavailable Care Team Providers Care Creative Services Director Name Role Phone Rashaun Valdez MD PCP Reason for Referral * Pain Authorization (Routine) - New Request Diagnoses / Procedures Referred By Contact Referred To Conta ct Specialty Diagnoses Chronic migraine w/o aura w/o status migrainosus, not intractable Procedures CHEMOD[place]ATION [place] [address] [facility] [address] [place] [address] Referral ID Status Reason Start Date Expiration Visits Vi sits Date Requested Authorized [id number] New Request 02/11/2021 02/11/2022 1 1 ER WINDER Reason for Visit * Reason Comments Procedure BTX #13; * Auth/Cert Diagnoses / Procedures Referred By Contact Referred To Conta ct Specialty Diagnoses Suicidal ideation Referral ID Status Reason Start Date Expiration Visits Vi sits Date Requested Authorized [id number] 1 1 Encounter Details Care Team Description [place] [address] [facility] [employer] [facility] [address] [place] [address] Chronic migraine w/o aura w/o status connor rainosus, not intractable 02/11/2021 Procedure visit Neurology: [facility] [address] [place] [id number] Social History Date Tobacco Use Types Packs/Day Years Used Never Smoker Smokeless Tobacco: Never Used Comments Alcohol Use Standard Drinks/Week Not Currently 0 (1 standard drink = 0.6 o z pure alcohol) Sex Assigned at Date Recorded Female 03/10/2020 4:08 PM SINKER WINDER Date Recorded COVID-19 Exposure Response 02/11/2021 1:48 PM SINKER WINDER In the last month, have you been in contact with No / Unsure someone who was confirmed or suspected to have Coronavirus / COVID-19? documented as of this encounter Last Filed Vital Signs Reading Time Taken Comments Vital Sign 128/82 02/11/2021 1:57 PM SINKER WINDER Blood Pressure 85 02/11/2021 1:57 PM SINKER WINDER Pulse - - Temperature - - Respiratory Rate 100% 02/11/2021 1:57 PM SINKER WINDER Oxygen Saturation - - Inhaled Oxygen Concentration 83.7 kg (184 lb 8 oz) 02/11/2021 1:57 PM SINKER WINDER Weight 165.1 cm (5' 5") 02/11/2021 1:57 PM SINKER WINDER Height 30.7 02/11/2021 1:57 PM SINKER WINDER Body Mass Index documented in this encounter Procedure Notes * Torito Owens MD - 02/11/2021 2:30 PM SINKER WINDER Associated Order(s): CHEMODENERVATION MUSCLE MIGRAINE Procedure(s): DE CHEMODERVATE FACIAL/TRIGEM/CERV MUSC MIGRAINE Pre-Procedure Diagnose(s): Chronic migraine Post-Procedure Diagnose(s): Chronic migraine w/o aura w/o status migrainosus, no t intractable Subjective: Selena Mortensen 30 y.o. female is here today for botox for chroni c migraines. PRIOR TO BOTOX: Previously she noted daily headaches with up to 10/10 pain for g reater than 5 years. There is a right greater than left frontal to the base of the neck with throbbing, dull aching, tightness, associated with nausea, vomitin g, photophobia, phonophobia. Currently: reports 9 migraines per month. She is apparently having fevers up to 101 nearly daily for months. They are having her see rheumatology for further wo rk up. Will stop flexeril and sumatriptan due to her symptoms in relation of increasing her wellbutrin dose. She feels depression and anxiety are worse. She called suicide hotline and then her doctor who talked to her by phone and told her to use the techniques she had learned. Discussed today. She denies SI today, no plan today. She declined intervention t bladimir, but she was willing to take resources. Any chance you are or trying to become ? No. Do you understand the risks and benefits of botox for migraine and wish to proce ed? Yes Vitals: 02/11/21 1357 BP: 128/82 BP [...] muscular weakness, musculoskeletal stiffness, bronchitis, injection-site pain, musculosk eletal pain, myalgia, facial paresis, hypertension, and muscle spasms; infection at injections sites, bruising, bleeding Most serious side effects/risks: anaphylaxis, dysphagia, pneumonia, arrhythmia, myocardial infarction, and in some cases, spontaneous Confirmed: patient, procedure, side, site, safety procedures followed. Performed by: Torito Owens MD. Preparation: no contraindications noted to Botox, possible medications prior to procedure Emla cream 2.5%/2.5% - 2g topically prior to procedure, Tylenol, Prepa ration of site with alcohol Procedure performed: Indication: Chronic Migraine Headaches Medication: Onabotulinum toxin A 2.5 ml/100 units (Botulinum Toxin 5 units per 0.1mL, 200 units prepared, 155 units used, 45 units of waste) Location: PREEMPT protocol (Kassy BHATIA, and coauthors. Cephalalgia, 2010;30:793) Muscles/Sites Injected A - Bilateral Supervisor Sign Shop - 10 units divided in 2 sites [...] 155 Units divided in 31 sites Lot/Expiration: [id number], 04/2023- both vials Procedure tolerated: well. Complications: none. Diagnosis Chronic Migraine Headaches Course: Progressing as expected. Counseled: Patient/Family, Regarding diagnosis, Regarding treatment, Regarding medications. If any serious side effects occur, the patient has been instructed to go to the nearest emergency room and call our office. Follow up: as scheduled - call with any concerns ER WINDER documented in this encounter Miscellaneous Notes * Patient Instructions - Torito Owens MD - 02/11/2021 2:30 PM SINKER WINDER 1) Do not massage or apply pressure on the treated area for 4hrs after treatment since Botox may migrate to areas of undesirable effectiveness. 2) Do not lie down for 4 hours after treatment. This is to avoid the risk of pre ssure on the treated areas. 3) Avoid rigorous exercise/activities, extensive heat (eg. sauna, hot tub, tanni ng) and sun exposure, and alcoholic beverages for the first 24 hours after treat ment. This may cause temporary redness, swelling, and/or itching at the injectio n sites. Feel free to shower and go about most other daily activities. 4) You may experience a mild headache after Botox. Should this occur, we recomme nd you avoid aspirin or aspirin containing products. You may opt instead to use acetaminophen, and/or cool compresses. Cold compresses may be used 10 minutes on 10 minutes off to reduce swelling 2-3 times per day during the first 1-2 days if needed. 5) Note that any bumps or martínez will go away in a few hours. If you do develop a bruise it will resolve like any other bruises you may have had in about a week. There is occasionally some mild pain, swelling, itching, or redness at the site of injection similar to most other injections. Redness may last for 1-2 days, r juan francisco longer. You may apply cool compresses or take acetaminophen to reduce swel ling or discomfort. It is patient's responsibility to notify the clinic of any insurance changes at least 2 weeks prior to any Botox injection appointment to allow for prior author ization update. Botox Savings Program: [employer] will reimburse patients up to $1000 per treatme nt [email or web address] or [employer] to register and submit cl aims. You will need your EOB with patient responsibility listed. If your EOB does not include CPT and J-code you will want to write those on the EOB to prevent delayed processing: CPT code: 28534 J-code: [id number] ER WINDER documented in this encounter Plan of Treatment Order Schedule Name Type Priority Associated Diag noses Ordered: 02/11/2021 CHEMODENERVATION MUSCLE Procedures Routine Chroni c migraine w/o aura MIGRAINE w/o status migrainosus, not intractable documented as of this encounter Procedures Comments Procedure Name Priority Date/Time Associated Diag nosis DE CHEMODERVATE Routine 02/11/2021 Chronic migrai ne FACIAL/TRIGEM/CERV MUSC 2:30 PM SINKER WINDER MIGRAINE documented in this encounter Visit Diagnoses Diagnosis Chronic migraine w/o aura w/o status mi grainosus, not intractable Chronic migraine without aura, without mention of intractable migraine without mention of status migrainosus documented in this encounter Administered Medications Action Date Dose Rate Site Medication Order MAR Action 02/11/2021 2:45 PM SINKER WINDER 155 Units ONAbotulinum toxin A (BOTOX) injection Given 155 Units 155 Units, SEE ADMIN INSTRUCTIONS, ONCE , 1 dose, On Tue02/11/21 at 1545 documented in this encounter Discontinued Medications Start Date End Date Medication Sig Discontinue Reason 08/18/2020 02/11/2021 zolpidem (AMBIEN) 10 mg Take 1 Patient's tablet tablet by Choice mouth at bedtime daily. 01/14/2021 02/11/2021 sumatriptan succinate TAKE ONE Per Provider (IMITREX) 100 mg tablet TABLET BY MOUTH AT ONSET OF HEADACHE DAILY NEEDED 02/11/2021 cyclobenzaprine Take 10 mg Per Provider (FLEXERIL) 10 mg tablet by mouth three times daily as needed. documented as of this encounter Historical Medications * This list may reflect changes made after this encounter. Start Date End Date Medication Sig Dispensed Refills eszopiclone (LUNESTA) 3 Take 3 mg by 0 mg tablet mouth at bedtime as needed for Sleep. 02/13/2021 buPROPion HCL SR Take 150 mg 0 (WELLBUTRIN SR) 150 mg by mouth tablet daily. added in this encounter Additional Health Concerns Noted Time Assessment 02/11/2021 1:56 PM SINKER WINDER PHQ-9 Depression Total Score: 21 02/11/2021 1:57 PM SINKER WINDER A fall risk assessment has been complet ed for the patient 04/04/2019 3:21 PM SINKER WINDER A Body Mass Index follow-up plan has be en documented for the patient 02/11/2021 1:56 PM SINKER WINDER PHQ-2 Depression Total Score: 6 documented as of this encounter Care Teams Start Date End Date Creative Services Director Relationship Specialty 05/25/18 Rashaun Valdez MD PCP - General [address] [phone] documented as of this encounter
--- OUTSIDE RECORDS SUMMARY | 2021-04-06 22:29 | XMS REPORT | Encounter Summary ---
Author Author [facility] Organization [facility] Address Unknown Phone Unavailable Care Team Providers Care Corporate Bond Trader Name Role Phone Rashaun Valdez MD PCP Encounter Details Care Team Description Date Type Department 02/12/2021 Travel Social History Date Tobacco Use Types Packs/Day Years Used Never Smoker Smokeless Tobacco: Never Used Comments Alcohol Use Standard Drinks/Week Not Currently 0 (1 standard drink = 0.6 o z pure alcohol) Sex Assigned at Date Recorded Female 03/10/2020 4:08 PM CHIEF CONCIERGE Date Recorded COVID-19 Exposure Response 02/12/2021 9:52 PM CHIEF CONCIERGE In the last month, have you been in contact with No / Unsure someone who was confirmed or suspected to have Coronavirus / COVID-19? documented as of this encounter Plan of Treatment Not on filedocumented as of this encounter Visit Diagnoses Not on filedocumented in this encounter Additional Health Concerns Noted Time Assessment 02/11/2021 1:56 PM CHIEF CONCIERGE PHQ-9 Depression Total Score: 21 02/11/2021 1:57 PM CHIEF CONCIERGE A fall risk assessment has been complet ed for the patient 04/04/2019 3:21 PM CHIEF CONCIERGE A Body Mass Index follow-up plan has be en documented for the patient 02/11/2021 1:56 PM CHIEF CONCIERGE PHQ-2 Depression Total Score: 6 documented as of this encounter Care Teams Start Date End Date Corporate Bond Trader Relationship Specialty 05/25/18 Rashaun Valdez MD PCP - General [address] [phone] documented as of this encounter
--- NOTE | 2021-04-06 22:42 | ED GI ---
General Chief Complaint: Abdominal/GI Problems Stated Complaint: N/V/D Source of Information: Patient Exam Limitations: No Limitations History of Present Illness Date Seen by Provider: Apr 06, 2021 Time Seen by Provider: 22:24 Initial Comments 30-year-old female with past medical history of anxiety, depression, bipolar disorder coming in due to 1 day of nonbloody nonbilious vomiting and nonbloody diarrhea. She said this occurred 2 weeks ago and got better after couple days. She took 2 COVID test 2 weeks ago which were normal. Symptoms started up again today. Denies any chest pain, abdominal pain, fever, cough, weakness, numbness, dysuria, flank pain, or any other concerns. She does have chronic headaches and she has one today which is her typical headache. She says she vomited her anxiety medicines up so she feels anxious. Allergies and Home Medications Allergies Coded Allergies: No Known Drug Allergies (Unverified , 05/13/18) Patient Home Medication List Home Medication List Reviewed: Yes Ondansetron (Ondansetron Odt) 4 Mg Tab.rapdis, 4 MG PO Q6H PRN for NAUSEA/VOMITING-1ST LINE Prescribed by: ELIOT STOKES on 04/06/212341 Sumatriptan Succinate (Imitrex) 100 Mg Tablet, 100 MG PO UD PRN for MIGRAINE Prescribed by: ALYX BAUGH on 05/13/182141 Tramadol HCl (Ultram) 50 Mg Tablet, 50 MG PO, (Reported) Entered as Reported by: SYDNIE COX on 05/13/182139 [Bupropion 75MG Tablets] , (Reported) Entered as Reported by: SYDNIE COX on 05/13/182053 [Clonazepam 1MG Tablets] , (Reported) Entered as Reported by: SYDNIE COX on 05/13/182053 [Cyclobenzaprine 10 Mg Tablet] , (Reported) Entered as Reported by: SYDNIE COX on 05/13/182053 [Escitalopram 20MG Tablets] , (Reported) Entered as Reported by: SYDNIE COX on 05/13/182053 [Estarylla Tablets 28S] , (Reported) Entered as Reported by: SYDNIE COX on 05/13/182053 [Ibuprofen 800MG Tablets] , (Reported) Entered as Reported by: SYDNIE COX on 05/13/182053 [Sumatriptan 100MG Tablets] , (Reported) Entered as Reported by: SYDNIE COX on 05/13/182053 [Topiramate 25 Mg Tablet] , (Reported) Entered as Reported by: SYDNIE COX on 05/13/182053 Review of Systems Review of Systems Constitutional: No chills, No fever EENTM: No Blurred Vision Respiratory: Denies Cough, Denies Shortness of Air Cardiovascular: Denies Chest Pain Gastrointestinal: Denies Abdominal Pain; Diarrhea, Nausea, Vomiting Genitourinary: No Symptoms Reported Musculoskeletal: no symptoms reported Skin: no symptoms reported Psychiatric/Neurological: No Symptoms Reported Endocrine: No Symptoms Reported Hematologic/Lymphatic: No Symptoms Reported All Other Systems Reviewed Negative Unless Noted: Yes Past Pmxjsux-Jhltvu-Aeoqrd Hx Seasonal Allergies Seasonal Allergies: No Past Medical History Surgeries: Yes (Bunionectomy, colonoscopy) Respiratory: No Cardiac: No Neurological: Yes Headaches /Migraines, Traumatic Brain Injury Genitourinary: No Gastrointestinal: No Musculoskeletal: No Endocrine: No HEENT: No Cancer: No Psychosocial: Yes Anxiety, Bipolar, Depression Integumentary: No Blood Disorders: No Adverse Reaction/Blood Tranf: No Physical Exam Vital Signs Vital Signs - First Documented 04/06/21 22:29 Temp 36.6 Pulse 89 Resp 17 B/P (MAP) 138/91 (107) Pulse Ox 100 O2 Delivery Room Air Capillary Refill : Height/Weight/BMI Height: 5'5.00" Weight: 150lbs. oz. 68.440989tt; 29.00 BMI Method:Stated General Appearance: WD/WN, no apparent distress HEENT: PERRL/EOMI, normal ENT inspection, pharynx normal Neck: non-tender, full range of motion, supple, normal inspection Respiratory: chest non-tender, lungs clear, normal breath sounds, no respiratory distress, no accessory muscle use Cardiovascular: regular rate, rhythm, no edema, no murmur Gastrointestinal: normal bowel sounds, non tender, soft; No distended, No guarding, No rebound Extremities: normal range of motion, non-tender, normal inspection, no pedal edema, normal capillary refill Back: normal inspection, no CVA tenderness Neurologic/Psychiatric: no motor/sensory deficits, alert, normal mood/affect Skin: normal color, warm/dry Lymphatic: no adenopathy Progress/Results/Core Measures Results/Orders Lab Results Laboratory Tests Test 04/06/21 22:30 04/06/21 22:51 04/06/21 22:59 Range/Units Urine Color YELLOW Urine Clarity CLEAR Urine pH 8.5 5-9 Urine Specific [place] 1.015 L 1.016-1.022 Urine Protein NEGATIVE NEGATIVE Urine Glucose (UA) NEGATIVE NEGATIVE Urine Ketones NEGATIVE NEGATIVE Urine Nitrite NEGATIVE NEGATIVE Urine Bilirubin NEGATIVE NEGATIVE Urine Urobilinogen 0.2 < = 1.0 MG/DL Urine Leukocyte Esterase NEGATIVE NEGATIVE Urine RBC (Auto) TRACE-I H NEGATIVE Urine RBC RARE /HPF Urine WBC RARE /HPF Urine Squamous Epithelial Cells 0-2 /HPF Urine Crystals NONE /LPF Urine Bacteria NEGATIVE /HPF Urine Casts NONE /LPF Urine Mucus NEGATIVE /LPF Urine Culture Indicated NO Glucometer 94 70-110 MG/DL Influenza Type A Antigen NEGATIVE NEGATIVE Influenza Type B Antigen NEGATIVE NEGATIVE My Orders Orders - ELIOT STOKES MD Droperidol Inj (Ed Only) (Inapsine Inj ( (04/06/21 22:45) Diphenhydramine Injection (Benadryl Inje (04/06/21 22:45) Ua Culture If Indicated (04/06/21 22:38) Influenza A & B Antigens (04/06/21 22:38) Covid 19 Inhouse Test (04/06/21 22:38) Urine Bedside (04/06/21 22:38) Medications Given in ED Current Medications Medications Dose Ordered Sig/Daksha Route Start Time Stop Time Status Last Admin Dose Admin Diphenhydramine HCl 12.5 mg ONCE ONCE IM 04/06/21 22:45 04/06/21 22:46 DC 04/06/21 22:49 12.5 MG Droperidol 2.5 mg ONCE ONCE IM 04/06/21 22:45 04/06/21 22:46 DC 04/06/21 22:49 2.5 MG Vital Signs/I&O 04/06/21 04/06/21 22:29 23:45 Temp 36.6 Pulse 89 71 Resp 17 15 B/P (MAP) 138/91 (107) 105/65 Pulse Ox 100 99 O2 Delivery Room Air Room Air Progress Progress Note : Progress Note 30-year-old female with above history coming in due to vomiting and diarrhea. ABCs were intact and vitals were stable on presentation. She said she wanted something for nausea and anxiety. She received an IM injection of droperidol which did improve her symptoms significantly. Urinalysis without evidence of infection, test negative. Influenza test negative. Covid test is pending at this time. Overall she is well-appearing and likely does have some type of GI bug. Her abdominal exam is benign even with repeat assessments. She is tolerating p.o. without difficulty, and has not had any episodes of vomiting despite taking p.o. in the emergency department. I believe she is stable for discharge with outpatient follow-up. She was sent home with strict return precautions peer Departure Impression Primary Impression: Nausea and vomiting Qualified Codes: R11.2 - Nausea with vomiting, unspecified Additional Impressions: Diarrhea Qualified Codes: R19.7 - Diarrhea, unspecified Person under investigation for COVID-19 Disposition: 01 HOME, SELF-CARE Condition: Stable Departure-Patient Inst. Decision time for Depature: 23:40 Referrals: TWAN JACKSON MD (PCP/Family) Primary Care Physician Patient Instructions: COVID-19 ED, Nausea and Vomiting, Adult (DC) Add. Discharge Instructions: You were seen in the emergency department for vomiting and diarrhea. This most likely is infectious from some virus. Your flu test is negative but your Covid test is pending and should come back tomorrow sometime. I sent nausea medicines to your pharmacy. Please follow-up with your regular doctor if you are not improving in the next couple of days. Scripts Ondansetron (Ondansetron Odt) 4 Mg Tab.rapdis 4 MG PO Q6H PRN for NAUSEA/VOMITING-1ST LINE for 5 Days, #20 TAB Prov: ELIOT STOKES MD 04/06/21 Work/School Note: Work Release Form Date Seen in the Emergency Department: Apr 06, 2021 Return to Work: Apr 08, 2021 Restrictions: Return-No Vomiting(24hrs) ELIOT STOKES MD Apr 06, 2021 22:42
[2021-04-06] MEDS ORDERED: DROPERIDOL 5 MG/2 ML (INAPSINE) ED ONLY! IM ONE (22:45)
[2021-04-06] MEDS ORDERED: diphenhydrAMINE 50 MG/ML INJ (BENADRYL) IM ONE (22:45)
[2021-04-06 23:03] LABS: BILIRUBIN,URINE NEGATIVE (NEGATIVE); CLARITY,URINE CLEAR; COLOR,URINE YELLOW; GLUCOSE, URINE (UA) NEGATIVE (NEGATIVE); KETONES,URINE NEGATIVE (NEGATIVE); LEUKOCYTE ESTERASE ,URINE NEGATIVE (NEGATIVE); NITRITE,URINE NEGATIVE (NEGATIVE); PH,URINE 8.5 (5-9); PROTEIN,URINE NEGATIVE (NEGATIVE)
[2021-04-06 23:09] LABS: BACTERIA,URINE NEGATIVE /HPF; RBC,URINE RARE /HPF; SQUAMOUS EPITHELIAL CELL,UR 0-2 /HPF; WBC,URINE RARE /HPF
[2021-04-06] MEDS ORDERED: ONDA4TAB11 PO (23:42)
[2021-04-06 23:45] VITALS: BP 105/65
== END 2021-04-06 23:45 | disposition home or self-care (01) ==
LOC: EDUNIT# 22:23 → ER FS 22:25
DX: R11.2 Nausea with vomiting, unspecified (principal); R19.7 Diarrhea, unspecified; F41.9 Anxiety disorder, unspecified; F32.9 Major depressive disorder, single episode, unspecified; Z20.822 Contact with and (suspected) exposure to COVID-19; Z87.820 Personal history of traumatic brain injury; Z79.899 Other long term (current) drug therapy
CPT/HCPCS: 81000; 82947; 84703; 87635; 87636; 87804; 99284

== ENCOUNTER 2021-06-11 05:42 | Outpatient (CLI) | payer MEDICAID ==
[~2021-06-11] VITALS: Ht 165.1 cm; Wt 84.4 kg
[~2021-06-11 05:42] MED LIST changes: +ONDA4TAB11 PO
[2021-06-11] MEDS ORDERED: BUSP15TA60 PO (10:25)
[2021-06-11] MEDS ORDERED: PSYL0.526 PO (10:25)
[2021-06-11] MEDS ORDERED: CHOL500049 PO (10:25)
[2021-06-11] MEDS ORDERED: LAMO100T5 PO (10:25)
[2021-06-11] MEDS ORDERED: CLON1TAB13 PO (10:25)
[2021-06-11] MEDS ORDERED: ESZO3TAB39 PO (10:25)
[2021-06-11] MEDS ORDERED: FLUC100T10 PO (10:25)
[2021-06-11] MEDS ORDERED: UBRO50TA PO (10:25)
[2021-06-11] MEDS ORDERED: METR-143 PO (10:25)
[2021-06-11] MEDS ORDERED: ONAB100V IJ (10:25)
[2021-06-11] MEDS ORDERED: CYAN3000 SL (10:25)
[2021-06-11] MEDS ORDERED: NORG-20 PO (10:25)
[2021-06-11] MEDS ORDERED: ACHD5005 PO (10:25)
== END 2021-06-11 12:57 | disposition home or self-care (01) ==
LOC: PREOP 05:42
PROVIDERS: ATTEND Surgery
DX: Z01.818 Encounter for other preprocedural examination (principal)

== ENCOUNTER 2021-06-23 13:26 | Day surgery (SDC) | payer MEDICAID ==
[~2021-06-23] VITALS: Ht 165 cm; Wt 84.4 kg
[~2021-06-23 13:26] MED LIST changes: +ACHD5005 PO; +BUSP15TA60 PO; +CHOL500049 PO; +CLON1TAB13 PO; +CYAN3000 SL; +ESZO3TAB39 PO; +FLUC100T10 PO; +LAMO100T5 PO; +METR-143 PO; +NORG-20 PO; +ONAB100V IJ; +PSYL0.526 PO; +UBRO50TA PO
[2021-06-23] MEDS ORDERED: LACTATED RINGERS 1,000 ML IV ONE (13:29)
[2021-06-23] MEDS ORDERED: LACTATED RINGERS 1,000 ML IV STA (13:33)
[2021-06-23] MEDS ORDERED: HURRICAINE EXT TUBE (BENZOCAINE) XX PRN (13:45)
[2021-06-23 13:50] VITALS: BP 119/81
[2021-06-23] MEDS ORDERED: PROPOFOL INJECTION 50 ML IV ONE (14:05)
--- NOTE | 2021-06-23 14:36 | Progress Note-Pre Operative ---
Pre-Operative Progress Note H&P Reviewed The H&P was reviewed, patient examined and no changes noted. Date Seen by Provider: Jun 23, 2021 Time Seen by Provider: 14:36 Date H&P Reviewed: Jun 23, 2021 Time H&P Reviewed: 14:36 Pre-Operative Diagnosis: Rectal bleeding. Chronic GERD. ED MARROQUIN DO Jun 23, 2021 14:36
[2021-06-23] MEDS ORDERED: MIDAZOLAM 2 MG/2 ML (VERSED) VIAL ONE (15:00)
[2021-06-23] MEDS ORDERED: PANT40TA2 PO (15:25)
--- NOTE | 2021-06-23 15:26 | Discharge Inst-Simple/Standard ---
Discharge Inst-Standard Discharge Medications New, Converted or Re-Newed RX: Transmitted to Pharmacy Patient Instructions/Follow Up Plan of Care/Instructions/FU: 2 weeks Elle Activity as Tolerated: Yes Discharge Diet: Regular Diet (High Fiber) ED MARROQUIN DO Jun 23, 2021 15:26
[2021-06-23] MEDS ORDERED: DOCU-143 PO (15:27)
--- NOTE | 2021-06-23 15:28 | Anesthesia-General Post-Op ---
MAC Patient Condition Mental Status/LOC: Same as Preop Cardiovascular: Satisfactory Nausea/Vomiting: Absent Respiratory: Satisfactory Pain: Controlled Complications: Absent Post Op Complications Complications None Follow Up Care/Instructions Patient Instructions None needed. Anesthesiology Discharge Order Discharge Order Patient is doing well, no complaints, stable vital signs, no apparent adverse anesthesia problems. No complications reported per nursing. DAMARI CAMARENA CRNA Jun 23, 2021 15:28
--- NOTE | 2021-06-23 15:29 | Progress Note-Post Operative ---
Post-Operative Progess Note Surgeon (s)/Thaw Shed Heater Tender (s) Surgeon ED MARROQUIN DO Thaw Shed Heater Tender: none Pre-Operative Diagnosis Rectal bleeding. Chronic GERD. Post-Operative Diagnosis Gastritis. Posterior anal fissure, hemorrhoids, poor prep. Procedure & Operative Findings Date of Procedure 06/23/21 Procedure Performed/Findings EGD with biopsies. Colonscopy. Anesthesia Type per TIRE MOLD ENGRAVER Estimated Blood Loss Estimated blood loss (mL): none Specimens/Packing Specimens Removed Biopsy of antrum and GE junction ED MARROQUIN DO Jun 23, 2021 15:29
[2021-06-23 15:30] VITALS: BP 90/55
[2021-06-23 15:58] VITALS: BP 125/72
--- NOTE | 2021-06-23 21:02 | OPERATIVE REPORT ---
DATE OF SERVICE: 06/23/2021 PREOPERATIVE DIAGNOSES: Rectal bleeding, chronic gastroesophageal reflux disease. POSTOPERATIVE DIAGNOSES: Gastritis, posterior anal fissure, healing hemorrhoids, ChloraPrep. PROCEDURE: EGD with biopsies, colonoscopy. SURGEON: Ed Almeida DO ANESTHESIA: Per RN MILITARY. ESTIMATED BLOOD LOSS: None. SPECIMENS: Antrum and GE junction. INDICATIONS: The patient is a 31-year-old female with rectal bleeding, chronic GERD symptoms. She understands risks and benefits of procedure and wishes to proceed. Consent was signed in the chart. DESCRIPTION OF PROCEDURE: The patient was taken to the endoscopy suite, placed in in the left lateral recumbent position. Timeout was performed. Scope was inserted in mouth, down the esophagus, stomach and into the duodenum without difficulty. There were no polyps, masses or ulcerations in the duodenum. Scope was slowly retracted back into the stomach where it was further insufflated. Some appearance of slight gastritis was present, for which biopsy of the antrum was obtained. Scope was then retroflexed noting no other pathology. Scope was returned to its normal position and slowly withdrawn. Biopsy of the GE junction was obtained. No polyps, masses or ulcerations. Scope was slowly retracted back until completely removed. Digital rectal exam was performed noting some internal hemorrhoids and a healing posterior anal fissure. Scope was inserted in the rectum and in the sigmoid began encountering a large stool burden. This was able to be advanced around and the scope was continued to be able to be advanced stool all the way into the right colon. A significant stool load and could not get any further at the hepatic flexure. Scope was then slowly retracted back. Again, prep was poor with solid stools of the portion of the colon that was able to be visualized. There were no polyps, masses or ulcerations within the transverse, descending, sigmoid colon. Multiple insertions and retractions were made in the rectum until completely removed, noting no other pathology. RECOMMENDATIONS: The patient will be started on Protonix 40 mg daily for gastritis. Due to the healing fissure, she was also started on Colace 100 mg b.i.d. stools soft. Recommend high fiber diet. The patient will follow up in the office. We will discuss repeating colonoscopy due to poor prep. We will consider to see if symptoms resolve after fissure healed. The patient also will need to have screening also by routine screening guidelines. Job ID: [id number] DocumentID: [id number] Dictated Date: 06/23/2021 16:07:06 Tube Former Operator Date: 06/23/2021 21:01:50 Dictated By: ED ALMEIDA DO
== END 2021-06-23 16:03 | disposition home or self-care (01) ==
LOC: ENDO 13:26
PROVIDERS: ATTEND Surgery
DX: K60.2 Anal fissure, unspecified (principal); K64.8 Other hemorrhoids; K29.70 Gastritis, unspecified, without bleeding; K21.00 Gastro-esophageal reflux disease with esophagitis, without bleeding; Z87.891 Personal history of nicotine dependence
CPT/HCPCS: 84703

== ENCOUNTER 2021-08-05 07:38 | Outpatient (CLI) | payer MEDICAID ==
[~2021-08-05] VITALS: Ht 165 cm; Wt 83.0 kg
[~2021-08-05 07:38] MED LIST changes: +DOCU-143 PO; +PANT40TA2 PO
[2021-08-06] MEDS ORDERED: RIZA10TA94 PO (09:18)
[2021-08-06] MEDS ORDERED: BUSP15TA60 PO (09:18)
[2021-08-06] MEDS ORDERED: DESV50TA18 PO (09:18)
[2021-08-06] MEDS ORDERED: SUMA100T3 PO (09:18)
== END 2021-08-06 09:23 | disposition home or self-care (01) ==
LOC: PREOP 07:38
PROVIDERS: ATTEND Surgery
DX: Z01.818 Encounter for other preprocedural examination (principal)

== ENCOUNTER 2021-08-18 07:15 | Day surgery (SDC) | payer MEDICAID ==
[~2021-08-18] VITALS: Ht 165 cm; Wt 83.0 kg
[~2021-08-18 07:15] MED LIST changes: +DESV50TA18 PO; +RIZA10TA94 PO; +SUMA100T3 PO
[2021-08-18] MEDS ORDERED: LACTATED RINGERS 1,000 ML IV STA (07:22)
[2021-08-18 07:28] VITALS: BP 116/74
[2021-08-18] MEDS ORDERED: MIDAZOLAM 2 MG/2 ML (VERSED) VIAL ONE (07:49)
[2021-08-18] MEDS ORDERED: PROPOFOL INJECTION 50 ML IV ONE (07:50)
--- NOTE | 2021-08-18 10:08 | Progress Note-Pre Operative ---
Pre-Operative Progress Note H&P Reviewed The H&P was reviewed, patient examined and no changes noted. Date Seen by Provider: Aug 18, 2021 Time Seen by Provider: :23 Date H&P Reviewed: Aug 18, 2021 Time H&P Reviewed: :23 Pre-Operative Diagnosis: hematochezia ED MARROQUIN DO Aug 18, 2021 10:08
--- NOTE | 2021-08-18 10:09 | Progress Note-Post Operative ---
Post-Operative Progess Note Surgeon (s)/User Interface Designer (s) Surgeon ED MARROQUIN DO User Interface Designer: na Pre-Operative Diagnosis hematochezia Post-Operative Diagnosis normal colon Procedure & Operative Findings Date of Procedure 08/18/21 Procedure Performed/Findings colonoscopy Anesthesia Type per packaging specialist Estimated Blood Loss Estimated blood loss (mL): none Specimens/Packing Specimens Removed none ED MARROQUIN DO Aug 18, 2021 10:09
[2021-08-18 10:10] VITALS: BP 94/53
--- NOTE | 2021-08-18 10:10 | Discharge Inst-Simple/Standard ---
Discharge Inst-Standard Patient Instructions/Follow Up Plan of Care/Instructions/FU: Elle on as needed basis. Repeat colonoscopy per screening guidelines. Activity as Tolerated: Yes Discharge Diet: Regular Diet ED MARROQUIN DO Aug 18, 2021 10:10
[2021-08-18 10:15] VITALS: BP 99/58
[2021-08-18 10:35] VITALS: BP 100/69
--- NOTE | 2021-08-18 11:34 | Anesthesia-General Post-Op ---
MAC Patient Condition Mental Status/LOC: Same as Preop Cardiovascular: Satisfactory Nausea/Vomiting: Absent Respiratory: Satisfactory Pain: Controlled Complications: Absent Post Op Complications Complications None Follow Up Care/Instructions Patient Instructions None needed. Anesthesiology Discharge Order Discharge Order Patient is doing well, no complaints, stable vital signs, no apparent adverse anesthesia problems. No complications reported per nursing. CHARITO SOSA CRNA Aug 18, 2021 11:34
--- NOTE | 2021-08-18 15:58 | OPERATIVE REPORT ---
DATE OF SERVICE: 08/18/2021 PREOPERATIVE DIAGNOSIS: Hematochezia. POSTOPERATIVE DIAGNOSIS: Normal colon. PROCEDURE PERFORMED: Colonoscopy. SURGEON: Ed Almeida DO ANESTHESIA: Per HADOOP INFRASTRUCTURE ARCHITECT. ESTIMATED BLOOD LOSS: None. COMPLICATIONS: None. INDICATIONS FOR PROCEDURE: The patient is a 31-year-old female needing colonoscopy due to hematochezia. She understands the risks and benefits of the procedure and wished to proceed. The patient had a two-day prep as she had incomplete colonoscopy last time. Consent was signed in the chart. DESCRIPTION OF PROCEDURE: The patient was taken to the endoscopy suite and placed in the left lateral recumbent position. Timeout was performed. Digital rectal exam was performed. No palpable polyps, masses or ulcerations. Scope was inserted in the rectum and advanced all the way to the cecum. There was some stool towards the rectal area, but lots of irrigation and suctioning was performed to make adequate visualization. Once in the cecum, scope was then slowly retracted back. No polyps, masses or ulcerations within the cecum, ascending, transverse, descending and sigmoid colon. Once in the rectum, scope was retroflexed noting no other pathology. Scope was returned to its normal position, slowly withdrawn until completely removed. The patient tolerated the procedure well without any complications. She was taken to recovery room in stable condition. RECOMMENDATIONS: The patient will need repeat colonoscopy per screening guidelines. If she has any return of symptoms, she should be reevaluated at that time. She is to follow up with her primary care provider. Job ID: [id number] DocumentID: [id number] Dictated Date: 08/18/2021 10:11:55 Recycling Operations Manager Date: 08/18/2021 15:57:50 Dictated By: ED ALMEIDA DO
== END 2021-08-18 10:45 | disposition home or self-care (01) ==
LOC: ENDO 07:15
PROVIDERS: ATTEND Surgery
DX: K92.1 Melena (principal); Z87.891 Personal history of nicotine dependence; Z79.899 Other long term (current) drug therapy; Z76.89 Persons encountering health services in other specified circumstances
CPT/HCPCS: 84703